=== PATIENT | female | born 1965 | race Caucasian/White ===

== ENCOUNTER 2016-07-29 10:28 | Emergency (ER) | payer MEDICARE, OTHER ==
[2016-07-29 10:42] VITALS: BP 140/67
--- OUTSIDE RECORDS SUMMARY | 2016-07-29 11:30 | XMS REPORT | Continuity of Care Document ---
:1965 Author Organization [facility] ([facility]) Address [address] [place] [address] Phone [phone] Care Team Providers Name Role Phone AkuaTamia vera Primary Care Provider [phone] Source Comments This disclosure is being made pursuant to the Care Everywhere program, applicable federal and state laws, and may not contain all informaitonavailable regarding this patient.[facility] ([facility]) Active Allergies and Adverse Reactions Allergen Noted Date Severity Reactions Comments [id number] Unknown severe fatigue Kinde Unknown Diabetes insipidus Pseudoephedrine Unknown severe fatigue Current Medications Prescription Sig. Disp. Refills Start Date End Date Status OLANZapine (ZYPREXA) Take 7.5 mg by mouth 10/28/2009 Active 10 mg tablet daily. Multivitamin,Tx-Iron-M Take 1 Tab by mouth 11/03/2009 Active inerals (MULTILEX-T&M) daily. Tab levocarnitine Take 330 mg by mouth 11/03/2009 Active (CARNITOR) 330 mg 3 times daily. tablet clonazePAM (KLONOPIN) Take 1 mg by mouth 2 11/03/2009 Active 0.5 mg tablet times daily LORazepam 1 mg tablet Take 1 mg by mouth Active every 8 hours as needed sodium fluoride 1 application by 51 g 11 11/02/2010 Active (PREVIDENT 5000 PLUS) Dental route at 1.1 % dental cream bedtime. [place] nightly with pea-sized amount. Spit excess but do not rinse. [id number] Indications: Prevention of Dental Caries tolterodine (DETROL Take 4 mg by mouth Active LA) 4 mg ER capsule daily. hydrOXYzine pamoate 25 Take 25 mg by mouth 3 Active mg capsule times daily. traZODone 150 mg Take 150 mg by mouth Active tablet at bedtime. acetaminophen Take 1 Tab by mouth 25 Tab 0 03/27/2012 Active (TYLENOL) 325 mg every 4 hours as tablet needed. Indications: PAIN polyethylene glycol Take 17 g by mouth 2 510 g 11 07/28/2014 Active 3350 (MIRALAX) 17 times daily. gram/dose powder Indications: CONSTIPATION lamoTRIgine 25 mg Take 75 mg by mouth Active tablet daily QUEtiapine (SEROquel) Take 200 mg by mouth Active 200 mg XR tablet daily fexofenadine 180 mg Take 180 mg by mouth Active tablet daily FLUoxetine 10 mg Take 20 mg by mouth Active capsule daily. guaiFENesin 600 mg XR Take 1,200 mg by Active tablet mouth 2 times daily as needed artificial tears Instill 1 Drop onto Active (GENTEAL) 0.3 % both eyes daily as ophthalmic solution needed docusate 100 mg Take 100 mg by mouth Active capsule daily levETIRAcetam 500 mg Take 500 mg by mouth Active tablet 2 times daily. fluticasone 50 Use 2 Sprays into Active mcg/Actuation nasal both nostrils daily. spray bisacodyl 5 mg EC Take 5 mg by mouth Active tablet daily. chlorhexidine 0.12 % Take 10 mL by mouth 2 Active oral rinse times daily. Swish and expectorate Nothing by mouth for 30 minutes after use. Active Problems Problem Noted Date Fascial defect 12/02/2014 Cellulitis 11/19/2014 Overview: Monitor, treat with IV cipro and flagyl. Hypophosphatemia 11/17/2014 Overview: Monitor, replete as appropriate Oliguria 11/17/2014 Overview: Monitor, IVF as appropriate Hypovolemia 11/17/2014 Overview: Monitor, IVF as appropriate Postoperative pain 11/16/2014 Overview: Monitor, treat with IV/PO pain meds as appropriate Anemia of chronic disease 11/16/2014 Overview: Monitor, transfuse prn Rectal prolapse 07/28/2014 Overview: S/p rectopexy 11/16/14 History of recurrent UTIs 03/07/2012 Constipation 03/07/2012 Overview: Monitor, miralax prn Epilepsy 03/07/2012 Overview: Monitor, resume home meds as appropriate Dietary surveillance and counseling 02/01/2006 Moderate intellectual disabilities 02/01/2006 Overview: Monitor, resume home anxiolytics as appropriate Other constipation 01/24/2006 Social History Tobacco Use Types Packs/Day Years Used Date Never Smoker Smokeless Tobacco: Never Used Tobacco Cessation:Counseling Given: Yes Comments: Alcohol Use Drinks/Week oz/Week Comments No Last Filed Vital Signs Vital Sign Reading Time Taken Blood Pressure 128/68 03/15/2016 2:00 PM CDT Pulse 79 03/15/2016 10:08 AM CDT Temperature 35.8 C (96.4 F) 03/15/2016 1:48 PM CDT Respiratory Rate 16 03/15/2016 1:43 PM CDT Height 1.6 m (5' 2.99") 02/16/2016 1:34 PM CDT Weight 47.4 kg (104 lb 8 oz) 03/15/2016 10:08 AM CDT Body Mass Index 18.52 03/15/2016 10:08 AM CDT Oxygen Saturation 96% 03/15/2016 2:15 PM CDT Plan of Care Health Maintenance Due Date Last Done Comments HCV Screening 1965 Hepatitis B Vaccine (1 of 3 - Primary Series) 1965 Tdap Vaccine 1974 Lipid Disorder Screening 1981 MMR Vaccine 1981 Td Vaccine 1981 Cervical Cancer Screening 1993 Mammogram 2003 Influenza Vaccine: Seasonal (#1) 12/27/2015 Colonoscopy 07/20/2024 07/20/2014 Results from Last 3 Months Not on file
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
== END 2016-07-29 11:41 | disposition home or self-care (01) ==
LOC: ER 10:28
DX: S63.502A Unspecified sprain of left wrist, initial encounter (principal); F41.8 Other specified anxiety disorders; F31.70 Bipolar disorder, currently in remission, most recent episode unspecified; Y04.2XXA Assault by strike against or bumped into by another person, initial encounter; Y92.129 Unspecified place in nursing home as the place of occurrence of the external cause

== ENCOUNTER 2017-04-28 13:03 | Inpatient (IN) | payer MEDICARE, MEDICAID ==
[2017-04-28] MEDS ORDERED: ACETAMINOPHEN 325 MG TABLET PO ONE (13:25)
[2017-04-28] MEDS ORDERED: NORMAL SALINE 1,000 ML IV ONE (13:25)
[2017-04-28] MEDS ORDERED: ONDANSETRON HCL/PF 2 MG/ML VIAL IV ONE (13:26)
[2017-04-28] MEDS ORDERED: ACETAMINOPHEN 325 MG TABLET ONE (13:39)
[2017-04-28] MEDS ORDERED: ONDANSETRON HCL/PF 2 MG/ML VIAL ONE (13:39)
[2017-04-28 13:50] LABS: Hematocrit 39.5 % (37.0-47.0); Hemoglobin 13.4 gm/dL (12.5-16.0); Mean Cell Volume 89.4 fl (78-100); Mean Corpuscular Hemoglobin 30.3 pg (27-31); Mean Corpuscular Hgb Conc 33.9 g/dl (32-36); Platelet Count 316 K/mm3 (150-450); Red Blood Count 4.42 M/mm3 (4.2-5.4); Red Cell Distribution Width 12.7 % (11.5-14.0); White Blood Count 12.6 K/mm3 (4.0-10.5)
[2017-04-28 13:51] LABS: Total Cells Counted 100
[2017-04-28 13:58] LABS: Band 11 % (0-2.0); Lymphocyte 4 % (20-51); Monocyte 7 % (0-9); Neutrophil 78 % (42-75); Neutrophil # 9.8 K/mm3 (1.3-6.0); Platelet Estimate Normal (NORMAL)
[2017-04-28 13:59] LABS: RBC Morphology Normal (NORMAL)
[2017-04-28 14:02] LABS: Anion Gap 12.1 mmol/L (6.8-13.8); BUN/Creatinine Ratio 21.2 (9.0-21.6); Bilirubin, Total 0.5 mg/dL (0.0-1.1); Ca. Corrected For Albumin 9.7 mg/dL (8.4-10.2); Calcium * 9.2 mg/dL (7.9-10.9); Carbon Dioxide 32.8 mmol/L (24-32.6); Magnesium 2.2 mg/dL (1.2-2.8); Potassium 3.9 mmol/L (3.4-4.6); Total Protein 7.8 gm/dL (6.2-8.2)
--- NOTE | 2017-04-28 14:10 | ERNOTE ---
Medical Problem HPI - General Chief Complaint: Fever Time Seen by Provider: 04/28/17 13:16 Source: patient, other - caregiver Exam Limitations: other - cognitive impairment - Immun/Allergies/Home Medications Immunizations: IMMUNIZATION HX Immunizations Up to Date Yes History of Influenza Vaccine More Information Required Hx Pneumococcal Vaccination More Information Required Allergies/Adverse Reactions: Allergies brompheniramine maleate [From Dimetapp (brompheniramine-PPA)] Allergy ( Intermediate, Verified 07/29/16 10:41) lithium [[place]] Allergy (Intermediate, Verified 07/29/16 10:41) phenylpropanolamine HCl [From Dimetapp (brompheniramine-PPA)] Allergy ( Intermediate, Verified 07/29/16 10:41) Home Medications: HOME MEDICATIONS Acetaminophen [Tylenol] 2 tab PO Q4HWA PRN 05/26/12 [Last Taken Unknown] Clonazepam [Klonopin] 1 mg PO BID 05/26/12 [Last Taken Unknown] Docusate Sodium [Colace] 100 mg PO DAILY 05/26/12 [Last Taken Unknown] Olanzapine [Zyprexa] 7.5 mg PO DAILY 05/26/12 [Last Taken Unknown] Polyethylene Glycol 3350 [Miralax] 17 gm PO DAILY 05/26/12 [Last Taken Unknown] QUEtiapine FUMARATE [Seroquel Xr] 200 mg PO DAILY 05/26/12 [Last Taken Unknown] Trazodone HCl 150 mg PO HS 05/26/12 [Last Taken Unknown] Multivit,Tx with Iron,Minerals [Bxgfbeid-P-Q with Minerals] 1 each PO DAILY 03/11 [Last Taken Unknown] Bisacodyl [Women's Laxative] 5 mg PO DAILY PRN 07/29/16 [Last Taken Unknown] Chlorhexidine Gluconate [Paroex] 1 tsp PO BID 07/29/16 [Last Taken Unknown] Cholecalciferol (Vitamin D3) [Vitamin D3] 2,000 unit PO DAILY 07/29/16 [Last Taken Unknown] FLUoxetine HCL [Prozac] 40 mg PO DAILY 07/29/16 [Last Taken Unknown] Fexofenadine HCl [Sejal Allergy] 180 mg PO DAILY 07/29/16 [Last Taken Unknown] Fluticasone Propionate [Flonase Allergy Relief] 1 spray NS DAILY 07/29/16 [Last Taken Unknown] LORazepam [Ativan] 1 mg PO TID PRN 07/29/16 [Last Taken Unknown] Levocarnitine [Carnitor] 330 mg PO TID 07/29/16 [Last Taken Unknown] guaiFENesin [Guaifenesin ER] 600 mg PO BID PRN 07/29/16 [Last Taken Unknown] lamoTRIgine [Lamictal] 100 mg PO DAILY 07/29/16 [Last Taken Unknown] levETIRAcetam [Keppra] 1,000 mg PO BID 07/29/16 [Last Taken Unknown] Hydroxyzine HCl 25 mg PO TID 04/28/17 [Last Taken Unknown] Memantine HCl [Namenda] 5 mg PO BID 04/28/17 [Last Taken Unknown] Solifenacin Succinate [Vesicare] 10 mg PO DAILY 04/28/17 [Last Taken Unknown] - History of Present History Narrative: Patient was apparently at her baseline yesterday started to run a fever last night that got up to 102+ today at her care facility. Timing: constant Severity: moderate Review of Systems - Review of Systems Constitutional: Present: See HPI EYE: Present: no symptoms reported ENT: Present: no symptoms reported Respiratory: Present: no symptoms reported Cardiology: Present: no symptoms reported Gastrointestinal/Abdominal: Present: no symptoms reported Genitourinary: Present: no symptoms reported Musculoskeletal: Present: no symptoms reported Skin: Present: no symptoms reported Neurological: Present: no symptoms reported Endocrine: Present: no symptoms reported Hematologic/Lymphatic: Present: no symptoms reported Psych: Present: no symptoms reported - Patient's Past Medical History Patient History - Medical: Anxiety, Bipolar, Depression, Seizures, Other Patient History - Cardiac/Respiratory: No pertinent hx Patient History - Cancer: No Hx of Cancer Patient History - Surgical Procedures: Hysterectomy, Other Patient History - Other: None - Social History Living Situations: home Abuse History: No History of abuse Psych History: Current tx/ever been on anti-depressants or anti-anxiety meds Smoking Status: Never smoker - Immunizations Immunizations Up to Date: Yes Hx Pneumococcal Vaccination: More Information Required to Determine History of Influenza Vaccine: More Information Required to Determine Physical Exam - Physical Exam General Appearance: Present: wd/wn, alert, mild distress Head Exam: Present: normal inspection, no evidence of injury Eye Exam: Normal inspection: bilateral, PERRL: bilateral Ears, Nose, Throat: Present: normal pharynx, dry mucous membranes Neck: Present: normal inspection, nontender Respiratory: Present: no accessory muscle use, chest nontender, respiratory distress, rales - right lobe Cardiovascular/Chest: Present: regular rate, rhythm, no murmur, normal peripheral pulses Gastrointestinal/Abdominal: Present: normal bowel sounds, nontender, nondistended, soft, no organomegaly Rectal Exam: Present: deferred Back Exam: Present: normal inspection, normal range of motion Extremity Exam: Present: normal inspection, non-tender, no edema, normal range of motion Neurological Exam: Present: alert, oriented, normal mood/affect Skin Exam: Present: normal color, warm/dry Lymphatic Exam: Present: no adenopathy ED Progress - Results and Orders Patient's Lab Results:: I have reviewed the patient's lab results. - Vital Signs Patient's Vital Signs:: I have reviewed the patient's vital signs. Vital Signs: Vital Signs 04/28/17 13:07 Temperature 38.9 C H Pulse Rate 99 Respiratory 18 Rate Blood Pressure 142/75 O2 Sat by Pulse 94 Oximetry - X-Ray X-Ray #1 X-Ray: chest Interpretation: Reviewed by me - Progress/Reassessment Chief Complaint: Fever Plan - Plan Plan: Patient will be admitted to a general medical bed for IV antibiotics. Departure Clinical Impression: Pneumonia Qualifiers: Pneumonia type: due to unspecified organism Laterality: right Lung location: middle lobe of lung Qualified Code(s): J18.1 - Lobar pneumonia, unspecified organism - Departure Disposition: [facility] Condition: Fair
[2017-04-28 14:55] LABS: Urine Appearance Clear; Urine Bilirubin Negative (NEGATIVE); Urine Blood Negative /ul (NEGATIVE); Urine Color Dark Yellow; Urine Ketone Negative (NEGATIVE); Urine Protein Negative (NEGATIVE); Urine Specific Gravity 1.025 SP.GR. (1.005-1.010)
[2017-04-28 14:56] LABS: Urine Bacteria None Seen; Urine Nitrite Negative (NEGATIVE); Urine RBC None Seen /hpf (0-5); Urine Urobilinogen Normal (NORMAL); Urine WBC 0-5 /hpf (0-5)
[2017-04-28] MEDS ORDERED: AZITHROMYCIN 500 MG in DEXTROSE 5 % IN WATER 250 ML IV ONE ×2 (16:27)
--- NOTE | 2017-04-28 20:18 | HP ---
Chief Complaint - Chief Complaint Date of Service: 04/28/17 Time of Service: 20:06 Chief Complaint: fever History of Present Illness: Pt is a 52 year old female with a PMH significant for, MR, bipolar disorder, and seizure disorder who comes from her long-term with complaints of a fever of 102*F, abdominal pain, N/V, and runny nose. Most information obtained is from medical record as pt is unable to provide history. Per staff at long-term they also report she has been incontinent of urine which unusual for her. In the ER workup revealed mild leukocytosis of 12.6 with left shift, bands 11. Chest xray shows consolidation in the RML/RUL, given history of vomiting, concerning for aspiration PN. ALT, AST, and alk phos were also elevated abdominal xray was completed, however the final read is not available to me at this time. Vital signs have remained stable and she is afebrile at this time. Influenza swabs negative. She will be admitted to in patient for further work up of elevated liver enzymes, serial labs, and treatment of her PN with IV antibiotics. - Patient's Past Medical History Patient History - Medical: Anxiety, Bipolar, Depression, Seizures, Other Patient History - Cardiac/Respiratory: No pertinent hx Patient History - Cancer: No Hx of Cancer Patient History - Surgical Procedures: Hysterectomy Patient History - Other: None - Family History Family History:: no untoward family reactions to anesthesia, no familial bleeding tendencies, no family history of clotting disorders, no family history of premature - Social History Living Situations: other Abuse History: No History of abuse Psych History: Hx of Anxiety, Hx of Depression, Hx of Bipolar Disorder, Hx of Psychiatric Tx, Current tx/ever been on anti-depressants or anti-anxiety meds Smoking Status: Never smoker Have you smoked in the past 12 months: No Do you dip or chew tobacco: No Alcohol Use: none Drug Use: none - Immunizations Immunizations Up to Date: Yes Hx Pneumococcal Vaccination: Yes History of Influenza Vaccine: Yes Review Of Systems (GEN) - Review of Systems Generalized/Overall Review: Present: No Symptoms Reported - Pt has mental diability and is unable to provide me with ROS Immunizations: IMMUNIZATION HX Immunizations Up to Date Yes History of Influenza Vaccine More Information Required Hx Pneumococcal Vaccination More Information Required Allergies/Adverse Reactions: Allergies Allergy/AdvReac Type Severity Reaction Status Date / Time brompheniramine maleate Allergy Intermediate Verified 04/28/17 17:34 [From Dimetapp (brompheniramine-PPA)] lithium [[place]] Allergy Intermediate Verified 04/28/17 17:34 phenylpropanolamine HCl Allergy Intermediate Verified 04/28/17 17:34 [From Dimetapp (brompheniramine-PPA)] Home Medications: HOME MEDICATIONS Acetaminophen [Tylenol] 2 tab PO Q4HWA PRN 05/26/12 [Last Taken Unknown] Clonazepam [Klonopin] 1 mg PO BID 05/26/12 [Last Taken Unknown] Docusate Sodium [Colace] 100 mg PO DAILY 05/26/12 [Last Taken Unknown] Olanzapine [Zyprexa] 7.5 mg PO DAILY 05/26/12 [Last Taken Unknown] Polyethylene Glycol 3350 [Miralax] 17 gm PO DAILY 05/26/12 [Last Taken Unknown] QUEtiapine FUMARATE [Seroquel Xr] 200 mg PO DAILY 05/26/12 [Last Taken Unknown] Trazodone HCl 150 mg PO HS 05/26/12 [Last Taken Unknown] Multivit,Tx with Iron,Minerals [Nlzyzpdi-Y-R with Minerals] 1 each PO DAILY 03/11 [Last Taken Unknown] Bisacodyl [Women's Laxative] 5 mg PO DAILY PRN 07/29/16 [Last Taken Unknown] Chlorhexidine Gluconate [Paroex] 1 tsp PO BID 07/29/16 [Last Taken Unknown] Cholecalciferol (Vitamin D3) [Vitamin D3] 2,000 unit PO DAILY 07/29/16 [Last Taken Unknown] FLUoxetine HCL [Prozac] 40 mg PO DAILY 07/29/16 [Last Taken Unknown] Fexofenadine HCl [Sejal Allergy] 180 mg PO DAILY 07/29/16 [Last Taken Unknown] Fluticasone Propionate [Flonase Allergy Relief] 1 spray NS DAILY 07/29/16 [Last Taken Unknown] LORazepam [Ativan] 1 mg PO TID PRN 07/29/16 [Last Taken Unknown] Levocarnitine [Carnitor] 330 mg PO TID 07/29/16 [Last Taken Unknown] guaiFENesin [Guaifenesin ER] 600 mg PO BID PRN 07/29/16 [Last Taken Unknown] lamoTRIgine [Lamictal] 100 mg PO DAILY 07/29/16 [Last Taken Unknown] levETIRAcetam [Keppra] 1,000 mg PO BID 07/29/16 [Last Taken Unknown] Hydroxyzine HCl 25 mg PO TID 04/28/17 [Last Taken Unknown] Memantine HCl [Namenda] 5 mg PO BID 04/28/17 [Last Taken Unknown] Solifenacin Succinate [Vesicare] 10 mg PO DAILY 04/28/17 [Last Taken Unknown] Exam - Exam Vital Signs: Vital Signs - Last Taken Temp 36.2 C L 04/28/17 16:41 Pulse 81 04/28/17 16:41 Resp 22 H 04/28/17 16:41 BP 119/66 04/28/17 16:41 Pulse Ox 96 2L 04/28/17 16:41 Constitutional: Present: Alert, Cooperative, No distress ENT Exam: Present: normal ENT inspection, hearing grossly normal Eye Exam: bilateral eye: normal inspection, PERRL Back Exam: Present: normal inspection, no CVA tenderness, no vertebral tenderness Respiratory: Present: chest non-tender, lungs clear, normal breath sounds, no respiratory distress, no accessory muscle use Cardiovascular/Chest: Present: normal peripheral pulses, regular rate, rhythm, no chest tenderness, no edema, no gallop, no JVD, no murmur Peripheral Pulses: dorsalis-pedis (R): 1+, dorsalis-pedis (L): 1+, radial (R): 1 +, radial (L): 1+ Abdomen: Present: Normal bowel sounds, soft, nondistended, no rebound tenderness , no hepatospenomegaly, no masses, tender - RUQ and epigastric area Extremity: Present: normal range of motion, non-tender, normal inspection, no pedal edema, no calf tenderness, normal capillary refill Skin Exam: Present: normal color, warm/dry, no cyanosis Lymphatic: Present: no adenopathy Neurologic: Present: alert Appearance: Present: impaired insight Eye contact: Present: cooperative, avoids eye contact, refused to answer Thoughts: Present: no apparent hallucination Diagnostic Studies: Laboratory Results Laboratory Tests 04/28/17 04/28/17 04/28/17 13:35 13:35 13:35 WBC 12.6 H Hgb 13.4 Hct 39.5 Neutrophils % (Manual) 78 H Band Neuts % (Manual) 11 H Neutrophils # (Manual) 9.8 H Sodium 138 Potassium 3.9 Chloride 97 Carbon Dioxide 32.8 H Anion Gap 12.1 BUN 14 Creatinine 0.66 Random Glucose 140 H Lactic Acid, Venous 1.6 Calcium 9.2 Magnesium 2.2 Total Bilirubin 0.5 AST 79 H ALT 127 H Alkaline Phosphatase 239 H Total Protein 7.8 Albumin 3.0 L Influenza Type A Ag Influenza Type B Ag Mycoplasma pneumon IgM Group A Strep Rapid 04/28/17 04/28/17 04/28/17 13:35 14:13 14:13 WBC Hgb Hct Neutrophils % (Manual) Band Neuts % (Manual) Neutrophils # (Manual) Sodium Potassium Chloride Carbon Dioxide Anion Gap BUN Creatinine Random Glucose Lactic Acid, Venous Calcium Magnesium Total Bilirubin AST ALT Alkaline Phosphatase Total Protein Albumin Influenza Type A Ag Negative Influenza Type B Ag Negative Mycoplasma pneumon IgM Non reactive Group A Strep Rapid Negative Assessment/Plan - Assessment/Plan (1) Abdominal pain Assessment: Unclear etiology at this point. Elevated LFTs and tenderness to RUQ could correlate with gallbladder etiology, no history of liver disease. Will obtain RUQ US and await final read on xray films completed earlier today. Pt will remain NPO in the meantime. Problem: Acute (2) Elevated liver enzymes Assessment: As above Problem: Acute (3) Pneumonia Assessment: Chest xray consistent with multilobular PN, given history of vomiting RML consolidation warrants concern for apspiration PN. Will change antibiotic coverage to [place]. Problem: Acute Qualifiers: Pneumonia type: aspiration pneumonia Laterality: right Lung location: middle lobe of lung (4) Mental retardation Problem: Chronic (5) Bipolar 1 disorder Assessment: Maintain current medication regimen Problem: Chronic (6) Seizure Assessment: No seizure activity reported. Will maintain current medication regimen. Problem: Chronic
[2017-04-28] MEDS ORDERED: LORazepam 1 MG TABLET PO PRN (20:24)
[2017-04-28] MEDS ORDERED: BISACODYL 10 MG SUPP.RECT RC ONE ×2 (20:27→21:48)
[2017-04-28] MEDS ORDERED: CHLORHEXIDINE GLUCONATE 480 ML BTL PO SCH (21:00)
[2017-04-28] MEDS ORDERED: BISACODYL 5 MG TABLET.DR PO PRN (21:29)
[2017-04-28] MEDS ORDERED: traZODone HCL 50 MG TABLET ONE (21:49)
[2017-04-28] MEDS: traZODone HCL 150 MG TABLET PO SCH (22:01)
[2017-04-28] MEDS: levETIRAcetam 500 MG TABLET PO SCH (22:02)
[2017-04-28] MEDS: hydrOXYzine HCL 25 MG TABLET PO SCH (22:02)
[2017-04-28] MEDS: MEMANTINE HCL 10 MG TABLET PO SCH (22:03)
[2017-04-28] MEDS: clonazePAM 1 MG TABLET PO SCH (22:07)
[2017-04-28] MEDS: AMPICILLIN SODIUM/SULBACTAM NA 1.5 GM in NORMAL SALINE 100 ML IV SCH (22:09)
[2017-04-29] MEDS: DEXTROSE 5%-0.5 NORMAL SALINE 1,000 ML IV PRN ×3 (00:14→19:10)
[2017-04-29] MEDS: AMPICILLIN SODIUM/SULBACTAM NA 1.5 GM in NORMAL SALINE 100 ML IV SCH ×4 (03:53→20:43)
[2017-04-29] MEDS ORDERED: DIATRIZOATE MEGLUMINE, SODIUM 30 ML BTL PO ONE (06:23)
[2017-04-29 06:36] LABS: Hematocrit 35.1 % (37.0-47.0); Hemoglobin 11.8 gm/dL (12.5-16.0); Mean Cell Volume 90.9 fl (78-100); Mean Corpuscular Hemoglobin 30.6 pg (27-31); Mean Corpuscular Hgb Conc 33.6 g/dl (32-36); Mean Platelet Volume 9.2 fl (6.0-9.5); Platelet Count 269 K/mm3 (150-450); Red Blood Count 3.86 M/mm3 (4.2-5.4); Red Cell Distribution Width 12.7 % (11.5-14.0); White Blood Count 11.1 K/mm3 (4.0-10.5)
[2017-04-29 06:37] LABS: Total Cells Counted 100
[2017-04-29 06:50] LABS: Albumin * 2.4 gm/dl (3.4-5.0); Anion Gap 6.8 mmol/L (6.8-13.8); BUN/Creatinine Ratio 18.8 (9.0-21.6); Bilirubin, Total 0.5 mg/dL (0.0-1.1); Ca. Corrected For Albumin 9.5 mg/dL (8.4-10.2); Calcium * 8.5 mg/dL (7.9-10.9); Carbon Dioxide 33.7 mmol/L (24-32.6); Potassium 3.5 mmol/L (3.4-4.6); Total Protein 6.7 gm/dL (6.2-8.2)
[2017-04-29 06:59] LABS: Band 10 % (0-2.0); Eosinophil 1 % (0-3); Lymphocyte 11 % (20-51); Monocyte 7 % (0-9); Neutrophil 71 % (42-75); Neutrophil # 7.9 K/mm3 (1.3-6.0); Platelet Estimate Normal (NORMAL); RBC Morphology Normal (NORMAL)
[2017-04-29] MEDS: CHLORHEXIDINE GLUCONATE 15 ML UDC MM SCH ×2 (08:58→20:47)
[2017-04-29] MEDS: hydrOXYzine HCL 25 MG TABLET PO SCH ×3 (08:59→20:47)
[2017-04-29] MEDS: FLUoxetine HCL 20 MG CAPSULE PO SCH (08:59)
[2017-04-29] MEDS: levETIRAcetam 500 MG TABLET PO SCH ×2 (08:59→20:45)
[2017-04-29] MEDS: MEMANTINE HCL 10 MG TABLET PO SCH ×2 (08:59→20:45)
[2017-04-29] MEDS: DOCUSATE SODIUM 100 MG CAPSULE PO SCH (09:00)
[2017-04-29] MEDS: lamoTRIgine 100 MG TABLET PO SCH (09:00)
[2017-04-29] MEDS ORDERED: CHLORHEXIDINE GLUCONATE 15 ML UDC MM SCH (09:00)
[2017-04-29] MEDS: QUEtiapine FUMARATE 100 MG TABLET PO SCH ×2 (09:01→20:46)
[2017-04-29] MEDS: TOLTERODINE TARTRATE 4 MG CAPSULE PO SCH (09:01)
[2017-04-29] MEDS: OLANZapine 5 MG TABLET PO SCH (09:01)
[2017-04-29] MEDS: MULTIVIT-MIN/FA/LYCOPEN/LUTEIN 1 TAB TABLET PO SCH (09:01)
[2017-04-29] MEDS: LORATADINE 10 MG TABLET PO SCH (09:01)
[2017-04-29] MEDS: CHOLECALCIFEROL 1,000 UNIT CAPSULE PO SCH (09:02)
[2017-04-29] MEDS: ENOXAPARIN SODIUM 40 MG/0.4 ML SYRG SC SCH (09:02)
[2017-04-29] MEDS: POLYETHYLENE GLYCOL 3350 119 GM BTL PO SCH (09:04)
[2017-04-29] MEDS: clonazePAM 1 MG TABLET PO SCH ×2 (09:34→20:55)
[2017-04-29] MEDS: LEVOCARNITINE 330 MG PO SCH ×3 (09:36→18:45)
[2017-04-29] MEDS: FLUTICASONE PROPIONATE 120 SPRAY INHALER NS SCH (09:38)
--- NOTE | 2017-04-29 20:20 | PN ---
Subjective - Date and Time Seen Date: 04/29/17 Time: 08:30 Subjective Narrative: Patient seen and examined at bedside. Patient resting comfortably in bed at the time of my exam. No acute issues overnight per staff. Objective Objective Narrative: ROS unable to obtain secondary to patient's baseline MR - Vitals Vitals: Last Vital Signs Temp 37.9 C H 04/29/17 18:46 Pulse 95 04/29/17 18:46 Resp 22 H 04/29/17 18:46 BP 94/55 04/29/17 18:46 Pulse Ox 96 04/29/17 18:46 - Abnormal Lab Findings Abnormal Lab Findings: Abnormal Lab Results 04/29/17 04/29/17 Range/Units 06:30 06:30 WBC 11.1 H (4.0-10.5) K/mm3 RBC 3.86 L (4.2-5.4) M/mm3 Hgb 11.8 L (12.5-16.0) gm/dL Hct 35.1 L (37.0-47.0) % Band Neuts % (Manual) 10 H (0-2.0) % Lymphocytes % (Manual) 11 L (20-51) % Neutrophils # (Manual) 7.9 H (1.3-6.0) K/mm3 Lymphocytes # (Manual) 1.2 L (1.5-3.5) k/mm3 Carbon Dioxide 33.7 H (24-32.6) mmol/L Est GFR (Non-Af Amer) 143 H D (60-130) mL/min Random Glucose 130 H (70-110) mg/dL AST 72 H (0-48) U/L ALT 119 H (19-67) U/L Alkaline Phosphatase 207 H (50-170) U/L Albumin 2.4 L (3.4-5.0) gm/dl - Exam Constitutional: Present: Alert, No distress ENT Exam: Present: dry mucous membranes Respiratory: Present: no respiratory distress, no accessory muscle use, other - Rhonchi noted on the right posteriorly Cardiovascular/Chest: Present: regular rate, rhythm Abdomen: Present: soft, nontender, nondistended Skin Exam: Present: warm/dry Neurologic: Present: alert Assessment/Plan - Problems/Diagnosis (1) Aspiration pneumonia Problem: Acute Qualifiers: Laterality: right Lung location: unspecified part of lung Narrative: Continue IV antibiotics. Continue aspiration precautions. Patient will likely need to remain in the hospital for at least 2-3 days while receiving IV antibiotics. Patient will need a follow-up CXR in approximately 4 weeks to monitor resolution. (2) Elevated liver enzymes Problem: Acute Narrative: Unclear etiology but most likely secondary to transient hypotension. Enzymes are slowly trending down. Continue to monitor for now. If no improvement or if enzymes remain elevated, consider further evaluation. (3) Bipolar 1 disorder Problem: Chronic (4) Mental retardation Problem: Chronic
[2017-04-29] MEDS: traZODone HCL 150 MG TABLET PO SCH (20:48)
[2017-04-30] MEDS: AMPICILLIN SODIUM/SULBACTAM NA 1.5 GM in NORMAL SALINE 100 ML IV SCH ×4 (03:09→21:41)
[2017-04-30] MEDS: DEXTROSE 5%-0.5 NORMAL SALINE 1,000 ML IV PRN ×3 (04:35→23:14)
[2017-04-30 05:51] LABS: Hemoglobin 11.3 gm/dL (12.5-16.0); Mean Cell Volume 90.9 fl (78-100); Mean Corpuscular Hemoglobin 30.2 pg (27-31); Mean Corpuscular Hgb Conc 33.2 g/dl (32-36); Platelet Count 297 K/mm3 (150-450); Red Blood Count 3.74 M/mm3 (4.2-5.4); Red Cell Distribution Width 12.7 % (11.5-14.0); White Blood Count 7.7 K/mm3 (4.0-10.5)
[2017-04-30 06:10] LABS: Albumin * 2.1 gm/dl (3.4-5.0); Anion Gap 6.7 mmol/L (6.8-13.8); BUN/Creatinine Ratio 8.6 (9.0-21.6); Bilirubin Direct 0.1 mg/dL (0.0-0.3); Bilirubin, Total 0.3 mg/dL (0.0-1.1); Bilirubin,Indirect 0.2 mg/dL (0.1-0.7); Calcium * 8.6 mg/dL (7.9-10.9); Carbon Dioxide 34.3 mmol/L (24-32.6); Estimated Creat Clear 105.3; Total Protein 6.4 gm/dL (6.2-8.2)
[2017-04-30] MEDS: POTASSIUM CHLORIDE 20 MEQ TABLET.SA PO SCH ×3 (07:13→21:35)
[2017-04-30] MEDS: hydrOXYzine HCL 25 MG TABLET PO SCH ×3 (08:01→16:43)
[2017-04-30] MEDS: MULTIVIT-MIN/FA/LYCOPEN/LUTEIN 1 TAB TABLET PO SCH (08:01)
[2017-04-30] MEDS: LORATADINE 10 MG TABLET PO SCH (08:01)
[2017-04-30] MEDS: DOCUSATE SODIUM 100 MG CAPSULE PO SCH (08:02)
[2017-04-30] MEDS: levETIRAcetam 500 MG TABLET PO SCH ×2 (08:02→21:36)
[2017-04-30] MEDS: TOLTERODINE TARTRATE 4 MG CAPSULE PO SCH (08:02)
[2017-04-30] MEDS: ENOXAPARIN SODIUM 40 MG/0.4 ML SYRG SC SCH (08:03)
[2017-04-30] MEDS: POLYETHYLENE GLYCOL 3350 119 GM BTL PO SCH (08:03)
[2017-04-30] MEDS: lamoTRIgine 100 MG TABLET PO SCH (08:03)
[2017-04-30] MEDS: FLUoxetine HCL 20 MG CAPSULE PO SCH (08:04)
[2017-04-30] MEDS: MEMANTINE HCL 10 MG TABLET PO SCH ×2 (08:04→21:37)
[2017-04-30] MEDS: QUEtiapine FUMARATE 100 MG TABLET PO SCH ×2 (08:04→21:38)
[2017-04-30] MEDS: CHLORHEXIDINE GLUCONATE 15 ML UDC MM SCH ×2 (08:04→21:37)
[2017-04-30] MEDS: CHOLECALCIFEROL 1,000 UNIT CAPSULE PO SCH (08:04)
[2017-04-30] MEDS: OLANZapine 5 MG TABLET PO SCH (08:05)
[2017-04-30] MEDS: clonazePAM 1 MG TABLET PO SCH ×2 (08:13→21:40)
[2017-04-30] MEDS: FLUTICASONE PROPIONATE 120 SPRAY INHALER NS SCH (08:14)
[2017-04-30] MEDS: LEVOCARNITINE 330 MG PO SCH ×3 (08:25→16:43)
--- NOTE | 2017-04-30 08:29 | PN ---
Subjective - Date and Time Seen Date: 04/30/17 Time: 08:26 Subjective Narrative: Patient says she is doing fine. Denies abdominal pain/SOB. Objective - Review of Systems Generalized/Overall Review: Denies: Chills, Fever Respiratory: Reports: Cough, Shortness of Breath. Denies: Orthopnea Cardiac: Denies: Chest Pain, Edema, Palpitations Abdominal: Denies: Nausea, Vomiting, Abdominal Pain Genitourinary Symptoms: Denies: Urgency, Frequency Musculoskeletal Complaints: Denies: Joint Pain - Vitals Vitals: Last Vital Signs Temp 37 C 04/30/17 06:44 Pulse 86 04/30/17 06:44 Resp 20 04/30/17 06:44 BP 125/63 04/30/17 06:44 Pulse Ox 92 04/30/17 06:44 - Abnormal Lab Findings Abnormal Lab Findings: Abnormal Lab Results 04/30/17 04/30/17 Range/Units 05:30 05:30 RBC 3.74 L (4.2-5.4) M/mm3 Hgb 11.3 L (12.5-16.0) gm/dL Hct 34.0 L (37.0-47.0) % Potassium 3.0 L (3.4-4.6) mmol/L Carbon Dioxide 34.3 H (24-32.6) mmol/L Anion Gap 6.7 L (6.8-13.8) mmol/L Creatinine 0.35 L (0.4-1.4) mg/dL Est GFR (Non-Af Amer) 206 H D (60-130) mL/min BUN/Creatinine Ratio 8.6 L (9.0-21.6) Random Glucose 130 H (70-110) mg/dL AST 61 H (0-48) U/L ALT 107 H (19-67) U/L Alkaline Phosphatase 211 H (50-170) U/L Albumin 2.1 L (3.4-5.0) gm/dl - Exam Constitutional: Present: Alert - AAO x 2, Cooperative ENT Exam: Present: hearing grossly normal Neck: Present: supple Respiratory: Present: decreased breath sounds, No rales, No wheezing Cardiovascular/Chest: Present: regular rate, rhythm, no JVD, no murmur Abdomen: Present: Normal bowel sounds, soft, nontender, nondistended Extremity: Present: no pedal edema, no calf tenderness Assessment/Plan - Problems/Diagnosis (1) Pneumonia Problem: Acute Qualifiers: Pneumonia type: aspiration pneumonia Laterality: right Lung location: middle lobe of lung Narrative: will add Azithromycin. (2) Elevated liver enzymes Problem: Acute Narrative: US shows no acute hepatobiliary findings. will order Hepatitis panel. (3) Mental retardation Problem: Chronic (4) Seizure Problem: Chronic (5) Gaseous abdominal distention Problem: Acute Narrative: ileus on AXR.
[2017-04-30] MEDS ORDERED: AZITHROMYCIN 250 MG TABLET PO ONE (08:34)
[2017-04-30] MEDS: traZODone HCL 150 MG TABLET PO SCH (21:36)
[2017-05-01] MEDS: AMPICILLIN SODIUM/SULBACTAM NA 1.5 GM in NORMAL SALINE 100 ML IV SCH ×4 (02:59→20:30)
[2017-05-01 06:11] LABS: Hematocrit 36.2 % (37.0-47.0); Mean Cell Volume 90.3 fl (78-100); Mean Corpuscular Hemoglobin 29.9 pg (27-31); Mean Corpuscular Hgb Conc 33.1 g/dl (32-36); Mean Platelet Volume 9.1 fl (6.0-9.5); Platelet Count 342 K/mm3 (150-450); Red Blood Count 4.01 M/mm3 (4.2-5.4); Red Cell Distribution Width 12.4 % (11.5-14.0); White Blood Count 7.4 K/mm3 (4.0-10.5)
[2017-05-01 06:26] LABS: Albumin * 2.3 gm/dl (3.4-5.0); Anion Gap 10.1 mmol/L (6.8-13.8); Bilirubin, Total 0.4 mg/dL (0.0-1.1); Ca. Corrected For Albumin 10.2 mg/dL (8.4-10.2); Calcium * 9.2 mg/dL (7.9-10.9); Carbon Dioxide 29.2 mmol/L (24-32.6); Potassium 4.3 mmol/L (3.4-4.6); Total Protein 7.1 gm/dL (6.2-8.2)
--- NOTE | 2017-05-01 06:27 | DS ---
(1) Abdominal pain Problem: Resolved (2) Elevated liver enzymes Problem: Acute (3) Pneumonia Problem: Acute Qualifiers: Pneumonia type: aspiration pneumonia Laterality: right Lung location: middle lobe of lung (4) Mental retardation Problem: Chronic (5) Bipolar 1 disorder Problem: Chronic (6) Seizure Problem: Chronic Description of Stay: Pt is a 52 year old female with a PMH significant for, MR, bipolar disorder, and seizure disorder who comes from her half-way with complaints of a fever of 102*F, abdominal pain, N/V, and runny nose. Most information obtained is from medical record as pt is unable to provide history. Per staff at half-way they also report she has been incontinent of urine which unusual for her. In the ER workup revealed mild leukocytosis of 12.6 with left shift, bands 11. Chest xray shows consolidation in the RML/RUL, given history of vomiting, concerning for aspiration PN. ALT, AST, and alk phos were also elevated abdominal xray was completed, however the final read is not available to me at this time. Vital signs have remained stable and she is afebrile at this time. Influenza swabs negative. She was admitted to in patient for further work up of elevated liver enzymes, serial labs, and treatment of her PN with IV antibiotics. During her hospital course, enzymes have slowed down trended. She has not complained of any abdominal pain, is having bowel movements, and is tolerating a diet. Repeat chest xray and abdominal imaging this morning revealed Procedures Performed: none Discharge Disposition: Other HealthCare facility Disposition: Other health care facility Condition: Fair Discharge Activity: Activity as tolerated Referrals: Tamia Lindo MD [Primary Care Provider] - One Week Problem Oriented Discharge Instructions to Patient/Family: Aspiration Pneumonia Print Language (Icelandic or Faroese Available): Icelandic Additional Patient Instructions (free text): Call Allyssa if patient discharged during office hours,[phone]. If after office hours call the medical numerical control operator phone at [phone]. Any medications need to be called into/sent to [facility] in [place]. Complete Home Medications List: Complete Home Medication List: Acetaminophen [Tylenol] 2 tab PO Q4HWA PRN 05/26/12 Clonazepam [Klonopin] 1 mg PO BID 05/26/12 Docusate Sodium [Colace] 100 mg PO DAILY 05/26/12 Olanzapine [Zyprexa] 7.5 mg PO DAILY 05/26/12 Polyethylene Glycol 3350 [Miralax] 17 gm PO DAILY 05/26/12 QUEtiapine FUMARATE [Seroquel Xr] 200 mg PO DAILY 05/26/12 Trazodone HCl 150 mg PO HS 05/26/12 Multivit,Tx with Iron,Minerals [Ktjmfphe-P-N with Minerals] 1 each PO DAILY 03/11 Bisacodyl [Women's Laxative] 5 mg PO DAILY PRN 07/29/16 Chlorhexidine Gluconate [Paroex] 1 tsp PO BID 07/29/16 Cholecalciferol (Vitamin D3) [Vitamin D3] 2,000 unit PO DAILY 07/29/16 FLUoxetine HCL [Prozac] 40 mg PO DAILY 07/29/16 Fexofenadine HCl [Sejal Allergy] 180 mg PO DAILY 07/29/16 Fluticasone Propionate [Flonase Allergy Relief] 1 spray NS DAILY 07/29/16 LORazepam [Ativan] 1 mg PO TID PRN 07/29/16 Levocarnitine [Carnitor] 330 mg PO TID 07/29/16 guaiFENesin [Guaifenesin ER] 600 mg PO BID PRN 07/29/16 lamoTRIgine [Lamictal] 100 mg PO DAILY 07/29/16 levETIRAcetam [Keppra] 1,000 mg PO BID 07/29/16 Hydroxyzine HCl 25 mg PO TID 04/28/17 Memantine HCl [Namenda] 5 mg PO BID 04/28/17 Solifenacin Succinate [Vesicare] 10 mg PO DAILY 04/28/17
[2017-05-01] MEDS: DEXTROSE 5%-0.5 NORMAL SALINE 1,000 ML IV PRN ×2 (08:27→20:13)
[2017-05-01] MEDS: AZITHROMYCIN 250 MG TABLET PO SCH (09:28)
[2017-05-01] MEDS: hydrOXYzine HCL 25 MG TABLET PO SCH ×3 (09:29→16:35)
[2017-05-01] MEDS: QUEtiapine FUMARATE 100 MG TABLET PO SCH ×2 (09:29→20:17)
[2017-05-01] MEDS: OLANZapine 5 MG TABLET PO SCH (09:30)
[2017-05-01] MEDS: MEMANTINE HCL 10 MG TABLET PO SCH ×2 (09:30→20:17)
[2017-05-01] MEDS: FLUoxetine HCL 20 MG CAPSULE PO SCH (09:30)
[2017-05-01] MEDS: TOLTERODINE TARTRATE 4 MG CAPSULE PO SCH (09:31)
[2017-05-01] MEDS: lamoTRIgine 100 MG TABLET PO SCH (09:31)
[2017-05-01] MEDS: levETIRAcetam 500 MG TABLET PO SCH ×2 (09:31→20:17)
[2017-05-01] MEDS: LORATADINE 10 MG TABLET PO SCH (09:31)
[2017-05-01] MEDS: DOCUSATE SODIUM 100 MG CAPSULE PO SCH (09:33)
[2017-05-01] MEDS: clonazePAM 1 MG TABLET PO SCH ×2 (09:33→20:21)
[2017-05-01] MEDS: CHOLECALCIFEROL 1,000 UNIT CAPSULE PO SCH (09:34)
[2017-05-01] MEDS: MULTIVIT-MIN/FA/LYCOPEN/LUTEIN 1 TAB TABLET PO SCH (09:34)
[2017-05-01] MEDS: FLUTICASONE PROPIONATE 120 SPRAY INHALER NS SCH (09:35)
[2017-05-01] MEDS: POLYETHYLENE GLYCOL 3350 119 GM BTL PO SCH (09:35)
[2017-05-01] MEDS: LEVOCARNITINE 330 MG PO SCH ×3 (09:36→16:30)
[2017-05-01] MEDS: ENOXAPARIN SODIUM 40 MG/0.4 ML SYRG SC SCH (09:36)
[2017-05-01] MEDS: CHLORHEXIDINE GLUCONATE 15 ML UDC MM SCH ×2 (09:36→20:18)
[2017-05-01] MEDS: ACETAMINOPHEN 325 MG TABLET PO PRN (12:03)
--- NOTE | 2017-05-01 12:22 | PN ---
Progess Note - Interim Narrative: 05/01/17 12:20 The patient had a Tmax of 38.2. Her CXr shows interval improvement and AXR shows stool retention. Will cancel her discharge and continue with her IV antibiotics and change to oral 24-48 hours after her fever subsides. Will use her discharge summary as her progress notes.
[2017-05-01] MEDS ORDERED: MAGNESIUM HYDROXIDE 30 ML UDC PO ONE ×2 (12:45→15:42)
[2017-05-01] MEDS: traZODone HCL 150 MG TABLET PO SCH (20:18)
[2017-05-02] MEDS: AMPICILLIN SODIUM/SULBACTAM NA 1.5 GM in NORMAL SALINE 100 ML IV SCH ×4 (04:12→20:29)
[2017-05-02 06:22] LABS: Albumin * 2.4 gm/dl (3.4-5.0); Bilirubin Direct 0.2 mg/dL (0.0-0.3); Bilirubin, Total 0.4 mg/dL (0.0-1.1); Bilirubin,Indirect 0.2 mg/dL (0.1-0.7); Total Protein 7.4 gm/dL (6.2-8.2)
[2017-05-02] MEDS: DEXTROSE 5%-0.5 NORMAL SALINE 1,000 ML IV PRN ×2 (07:48→19:06)
--- NOTE | 2017-05-02 08:53 | PN ---
Progess Note - Interim Narrative: 05/02/17 08:52 Tmax last night was 39.2 despite improving Xray findings. LFT's elevated. US showed no GB/Biliary tree pathology but no mention of liver. For CTS of abdomen and pelvis today- liver abscess?.
[2017-05-02] MEDS ORDERED: DIATRIZOATE MEGLUMINE, SODIUM 30 ML BTL PO ONE (09:23)
[2017-05-02] MEDS: POLYETHYLENE GLYCOL 3350 119 GM BTL PO SCH (09:27)
[2017-05-02] MEDS: FLUTICASONE PROPIONATE 120 SPRAY INHALER NS SCH (09:27)
[2017-05-02] MEDS: TOLTERODINE TARTRATE 4 MG CAPSULE PO SCH (09:28)
[2017-05-02] MEDS: levETIRAcetam 500 MG TABLET PO SCH ×2 (09:28→20:22)
[2017-05-02] MEDS: DOCUSATE SODIUM 100 MG CAPSULE PO SCH (09:28)
[2017-05-02] MEDS: MEMANTINE HCL 10 MG TABLET PO SCH ×2 (09:28→20:22)
[2017-05-02] MEDS: FLUoxetine HCL 20 MG CAPSULE PO SCH (09:29)
[2017-05-02] MEDS: LORATADINE 10 MG TABLET PO SCH (09:29)
[2017-05-02] MEDS: MULTIVIT-MIN/FA/LYCOPEN/LUTEIN 1 TAB TABLET PO SCH (09:29)
[2017-05-02] MEDS: CHLORHEXIDINE GLUCONATE 15 ML UDC MM SCH ×2 (09:29→20:21)
[2017-05-02] MEDS: QUEtiapine FUMARATE 100 MG TABLET PO SCH ×2 (09:29→20:28)
[2017-05-02] MEDS: OLANZapine 5 MG TABLET PO SCH (09:29)
[2017-05-02] MEDS: ENOXAPARIN SODIUM 40 MG/0.4 ML SYRG SC SCH (09:29)
[2017-05-02] MEDS: lamoTRIgine 100 MG TABLET PO SCH (09:30)
[2017-05-02] MEDS: LEVOCARNITINE 330 MG PO SCH ×3 (09:30→16:45)
[2017-05-02] MEDS: AZITHROMYCIN 250 MG TABLET PO SCH (09:30)
[2017-05-02] MEDS: CHOLECALCIFEROL 1,000 UNIT CAPSULE PO SCH (09:30)
[2017-05-02] MEDS: clonazePAM 1 MG TABLET PO SCH ×2 (09:43→20:24)
[2017-05-02] MEDS: hydrOXYzine HCL 25 MG TABLET PO SCH ×3 (09:43→17:06)
[2017-05-02] MEDS: ACETAMINOPHEN 325 MG TABLET PO PRN (12:27)
[2017-05-02 16:03] LABS: Hepatitis C Antibody REACTIVE (NON-REACTIVE); Hepatitis Panel Confirmation DNR
--- NOTE | 2017-05-02 16:20 | PN ---
Subjective - Date and Time Seen Date: 05/02/17 Time: 16:10 Objective - Review of Systems Generalized/Overall Review: Reports: Fever. Denies: Chills Respiratory: Reports: Cough. Denies: Shortness of Breath Cardiac: Denies: Chest Pain, Palpitations Abdominal: Denies: Nausea, Vomiting, Abdominal Pain Genitourinary Symptoms: Denies: Urgency, Frequency Musculoskeletal Complaints: Denies: Joint Pain - Vitals Vitals: Last Vital Signs Temp 37.1 C 05/02/17 15:11 Pulse 95 05/02/17 15:11 Resp 18 05/02/17 15:11 BP 101/54 05/02/17 15:11 Pulse Ox 91 05/02/17 15:11 - Abnormal Lab Findings Abnormal Lab Findings: Abnormal Lab Results 05/02/17 Range/Units 05:59 AST 137 H (0-48) U/L ALT 209 H (19-67) U/L Alkaline Phosphatase 377 H (50-170) U/L Albumin 2.4 L (3.4-5.0) gm/dl - Exam Constitutional: Present: Alert - AAO x 2, Cooperative ENT Exam: Present: hearing grossly normal Neck: Present: supple Respiratory: Present: decreased breath sounds, No rales, No wheezing Cardiovascular/Chest: Present: regular rate, rhythm, no JVD, no murmur Abdomen: Present: Normal bowel sounds, soft, nontender, nondistended Extremity: Present: no pedal edema, no calf tenderness Assessment/Plan - Problems/Diagnosis (1) Fever Problem: Acute Narrative: WBC down to normal for the last 2 days. CXR /abdominal XR shows improvement except for stool retention. CTS shows no acute intra-abdominal pathology but recommends Abdominal MRI/MRCP. Drug fever ? persisitent Elevated LFT. ADDENDUM: Tmax at 12:19 is 39.2 again. (2) Pneumonia Problem: Acute Qualifiers: Pneumonia type: aspiration pneumonia Laterality: right Lung location: middle lobe of lung (3) Elevated liver enzymes Problem: Acute Narrative: continues to be up. For CTS today. ADDENDUM: CTS showed stool retention . recommend MRI with MRCP if abdomen. (4) Mental retardation Problem: Chronic (5) Seizure Problem: Chronic (6) Gaseous abdominal distention Problem: Acute
[2017-05-02] MEDS: traZODone HCL 150 MG TABLET PO SCH (20:22)
[2017-05-03] MEDS: AMPICILLIN SODIUM/SULBACTAM NA 1.5 GM in NORMAL SALINE 100 ML IV SCH ×4 (02:35→20:55)
[2017-05-03] MEDS: DEXTROSE 5%-0.5 NORMAL SALINE 1,000 ML IV PRN ×3 (02:39→22:57)
[2017-05-03 08:58] LABS: Hepatitis A IgM Antibody NON-REACTIVE (NON-REACTIVE); Hepatitis B Surface Antigen NON-REACTIVE (NON-REACTIVE)
[2017-05-03] MEDS: MULTIVIT-MIN/FA/LYCOPEN/LUTEIN 1 TAB TABLET PO SCH (09:26)
[2017-05-03] MEDS: hydrOXYzine HCL 25 MG TABLET PO SCH ×3 (09:26→16:30)
[2017-05-03] MEDS: FLUTICASONE PROPIONATE 120 SPRAY INHALER NS SCH (09:27)
[2017-05-03] MEDS: LORATADINE 10 MG TABLET PO SCH (09:27)
[2017-05-03] MEDS: levETIRAcetam 500 MG TABLET PO SCH ×2 (09:27→20:50)
[2017-05-03] MEDS: TOLTERODINE TARTRATE 4 MG CAPSULE PO SCH (09:27)
[2017-05-03] MEDS: DOCUSATE SODIUM 100 MG CAPSULE PO SCH (09:27)
[2017-05-03] MEDS: clonazePAM 1 MG TABLET PO SCH ×2 (09:27→20:54)
[2017-05-03] MEDS: lamoTRIgine 100 MG TABLET PO SCH (09:28)
[2017-05-03] MEDS: LEVOCARNITINE 330 MG PO SCH ×3 (09:28→16:29)
[2017-05-03] MEDS: ENOXAPARIN SODIUM 40 MG/0.4 ML SYRG SC SCH (09:28)
[2017-05-03] MEDS: POLYETHYLENE GLYCOL 3350 119 GM BTL PO SCH (09:28)
[2017-05-03] MEDS: MEMANTINE HCL 10 MG TABLET PO SCH ×2 (09:29→20:50)
[2017-05-03] MEDS: CHLORHEXIDINE GLUCONATE 15 ML UDC MM SCH ×2 (09:29→20:49)
[2017-05-03] MEDS: QUEtiapine FUMARATE 100 MG TABLET PO SCH ×2 (09:30→20:51)
[2017-05-03] MEDS: OLANZapine 5 MG TABLET PO SCH (09:30)
[2017-05-03] MEDS: CHOLECALCIFEROL 1,000 UNIT CAPSULE PO SCH (09:30)
[2017-05-03] MEDS: AZITHROMYCIN 250 MG TABLET PO SCH (09:30)
[2017-05-03] MEDS: FLUoxetine HCL 20 MG CAPSULE PO SCH (09:30)
--- NOTE | 2017-05-03 12:03 | PN ---
Shelbie Note - Interim Narrative: 05/03/17 12:01 Could not do the MRI/MRCP as patient cannnot follow instructions. Will cancel. Will give her enema today and possible discharge tomorrow if she does not develop fever again.
--- NOTE | 2017-05-03 12:39 | PN ---
Subjective - Date and Time Seen Date: 05/03/17 Time: 12:35 Subjective Narrative: Patient NAD. Afebrile today. Objective - Review of Systems Misc: All systems neg except as marked - ROS is unreliable- everything is no pain - Vitals Vitals: Last Vital Signs Temp 37.2 C 05/03/17 11:26 Pulse 82 05/03/17 11:26 Resp 20 05/03/17 11:26 BP 126/64 05/03/17 11:26 Pulse Ox 96 05/03/17 11:26 - Abnormal Lab Findings Abnormal Lab Findings: Abnormal Lab Results 04/30/17 Range/Units 05:30 Hepatitis C Antibody Reactive H Hep C Ab Signal/Cutoff 1.04 H - Exam Constitutional: Present: Alert - AAO X 2, Cooperative ENT Exam: Present: hearing grossly normal Respiratory: Present: decreased breath sounds, No rales, No wheezing Cardiovascular/Chest: Present: normal peripheral pulses Abdomen: Present: Normal bowel sounds, soft, nontender, nondistended, no rebound tenderness Extremity: Present: no pedal edema, no calf tenderness Assessment/Plan - Problems/Diagnosis (1) Fever Problem: Acute Narrative: afebrile . ir remains w/o fever for another 24 hours will discharge patient. (2) Pneumonia Problem: Acute Qualifiers: Pneumonia type: aspiration pneumonia Laterality: right Lung location: middle lobe of lung Narrative: interval improvement on CXR. WBC back to normal (3) Elevated liver enzymes Problem: Acute Narrative: US /CTS no specific findings. Recommending MRI with MRCP but patient cannot follow innstructions in MRI. (4) Mental retardation Problem: Chronic (5) Seizure Problem: Chronic (6) Gaseous abdominal distention Problem: Acute Narrative: stool retention. will give enemas (7) Fecal retention Problem: Acute Narrative: on CTS . will give enema.
[2017-05-03] MEDS: traZODone HCL 150 MG TABLET PO SCH (20:51)
[2017-05-03] MEDS: ACETAMINOPHEN 325 MG TABLET PO PRN (21:23)
[2017-05-04] MEDS: AMPICILLIN SODIUM/SULBACTAM NA 1.5 GM in NORMAL SALINE 100 ML IV SCH ×2 (03:32→09:51)
[2017-05-04] MEDS: DEXTROSE 5%-0.5 NORMAL SALINE 1,000 ML IV PRN (07:35)
--- NOTE | 2017-05-04 09:40 | DS ---
(1) Fever Diagnosis(s): likely due to Acute Hep C and /or Pneumonia. Problem: Acute (2) Pneumonia Diagnosis(s): day 5 of IV antibiotics. Problem: Acute Qualifiers: Pneumonia type: aspiration pneumonia Laterality: right Lung location: middle lobe of lung (3) Elevated liver enzymes Diagnosis(s): deu to Hep C acute vs chronic Problem: Acute (4) Mental retardation Problem: Chronic (5) Seizure Problem: Chronic (6) Gaseous abdominal distention Problem: Acute (7) Fecal retention Problem: Acute Description of Stay: Nisa Lemus, is a 52 year old female, with a PMH significant for MR, bipolar disorder, and seizure disorder who was admitted on 04/30/2017, from her correction with complaints of a fever of 102*F, abdominal pain, N/V, and runny nose. Most information obtained is from medical record as pt is unable to provide history. Per staff at correction they also report she has been incontinent of urine which unusual for her. In the ER workup revealed mild leukocytosis of 12.6 with left shift, bands 11. Chest xray shows consolidation in the RML/RUL, given history of vomiting, concerning for aspiration PN. ALT, AST, and alk phos were also elevated abdominal xray Vital signs have remained stable and she is afebrile at this time. Influenza swabs negative. She was admitted to in patient for further work up of elevated liver enzymes, serial labs, and treatment of her PN with IV antibiotics. She was started on Unasyn for aspiration pneumonia. Azithromycin was added. Her US showed no acute Hepatobiliary findings. Hepatitis panel was sent out. Her CTS showed no acute intarabdominal findings as she continued to have fever despite WBC going down to normal and interbval improvement of her CXR for pneumonia. Her Hepatitis panel came back positive for Hepatitis C antibody. She is stable discharge and will get a Hep C RNA level before her discharge and will make an appointment for her with Hepatology dept in [facility] if she is candidate for treatment with DAA in the acute phase. Procedures Performed: none Discharge Disposition: Other HealthCare facility Disposition: Other health care facility Condition: Fair Discharge Activity: Activity as tolerated Discharge Diet: Low fat/chol Referrals: Tamia Lindo MD [Primary Care Provider] - One Week Problem Oriented Discharge Instructions to Patient/Family: Aspiration Pneumonia Print Language (Spanish or Canadian Available): Spanish Additional Patient Instructions (free text): Call Allyssa if patient discharged during office hours,[phone] [phone]. If after office hours call the refrigeration service inspector phone at [phone]. Any medications need to be called into/sent to [facility] in [place]. Resume previous diet. Follow up with PCP in 1 week.. Prescriptions (Any new or edited meds): Amox Tr/Potassium Clavulanate [Augmentin 875-125 Tablet] 875 mg PO Q12H #10 tab Complete Home Medications List: Complete Home Medication List: Acetaminophen [Tylenol] 2 tab PO Q4HWA PRN 05/26/12 Clonazepam [Klonopin] 1 mg PO BID 05/26/12 Docusate Sodium [Colace] 100 mg PO DAILY 05/26/12 Olanzapine [Zyprexa] 7.5 mg PO DAILY 05/26/12 Polyethylene Glycol 3350 [Miralax] 17 gm PO DAILY 05/26/12 QUEtiapine FUMARATE [Seroquel Xr] 200 mg PO DAILY 05/26/12 Trazodone HCl 150 mg PO HS 05/26/12 Multivit,Tx with Iron,Minerals [Dsvkutzj-M-V with Minerals] 1 each PO DAILY 03/11 Bisacodyl [Women's Laxative] 5 mg PO DAILY PRN 07/29/16 Chlorhexidine Gluconate [Paroex] 1 tsp PO BID 07/29/16 Cholecalciferol (Vitamin D3) [Vitamin D3] 2,000 unit PO DAILY 07/29/16 FLUoxetine HCL [Prozac] 40 mg PO DAILY 07/29/16 Fexofenadine HCl [Sejal Allergy] 180 mg PO DAILY 07/29/16 Fluticasone Propionate [Flonase Allergy Relief] 1 spray NS DAILY 07/29/16 LORazepam [Ativan] 1 mg PO TID PRN 07/29/16 Levocarnitine [Carnitor] 330 mg PO TID 07/29/16 guaiFENesin [Guaifenesin ER] 600 mg PO BID PRN 07/29/16 lamoTRIgine [Lamictal] 100 mg PO DAILY 07/29/16 levETIRAcetam [Keppra] 1,000 mg PO BID 07/29/16 Hydroxyzine HCl 25 mg PO TID 04/28/17 Memantine HCl [Namenda] 5 mg PO BID 04/28/17 Solifenacin Succinate [Vesicare] 10 mg PO DAILY 04/28/17 Amox Tr/Potassium Clavulanate [Augmentin 875-125 Tablet] 875 mg PO Q12H #10 tab 05/04/17 Amb Orders for Discharge: Liver Panel Time Frame: 05/11/17, Location: Determined By Patient
[2017-05-04] MEDS: LEVOCARNITINE 330 MG PO SCH ×2 (09:54→14:31)
[2017-05-04] MEDS: hydrOXYzine HCL 25 MG TABLET PO SCH (14:29)
[2017-05-04] MEDS: TOLTERODINE TARTRATE 4 MG CAPSULE PO SCH (14:29)
[2017-05-04] MEDS: LORATADINE 10 MG TABLET PO SCH (14:29)
[2017-05-04] MEDS: FLUTICASONE PROPIONATE 120 SPRAY INHALER NS SCH (14:29)
[2017-05-04] MEDS: DOCUSATE SODIUM 100 MG CAPSULE PO SCH (14:29)
[2017-05-04] MEDS: MULTIVIT-MIN/FA/LYCOPEN/LUTEIN 1 TAB TABLET PO SCH (14:29)
[2017-05-04] MEDS: levETIRAcetam 500 MG TABLET PO SCH (14:29)
[2017-05-04] MEDS: lamoTRIgine 100 MG TABLET PO SCH (14:30)
[2017-05-04] MEDS: OLANZapine 5 MG TABLET PO SCH (14:30)
[2017-05-04] MEDS: AZITHROMYCIN 250 MG TABLET PO SCH (14:30)
[2017-05-04] MEDS: CHLORHEXIDINE GLUCONATE 15 ML UDC MM SCH (14:30)
[2017-05-04] MEDS: ENOXAPARIN SODIUM 40 MG/0.4 ML SYRG SC SCH (14:30)
[2017-05-04] MEDS: FLUoxetine HCL 20 MG CAPSULE PO SCH (14:30)
[2017-05-04] MEDS: MEMANTINE HCL 10 MG TABLET PO SCH (14:30)
[2017-05-04] MEDS: CHOLECALCIFEROL 1,000 UNIT CAPSULE PO SCH (14:30)
[2017-05-04] MEDS: QUEtiapine FUMARATE 100 MG TABLET PO SCH (14:30)
[2017-05-04] MEDS: POLYETHYLENE GLYCOL 3350 119 GM BTL PO SCH (14:30)
[2017-05-04] MEDS: clonazePAM 1 MG TABLET PO SCH (14:30)
[2017-05-04 14:44] VITALS: BP 118/56
== END 2017-05-04 16:05 | disposition home or self-care (01) | DRG 179 ==
LOC: ER 13:03 → MS 16:19
PROVIDERS: ADMIT Internal Medicine; ATTEND Internal Medicine
DX: J69.0 Pneumonitis due to inhalation of food and vomit (principal); R94.5 Abnormal results of liver function studies; K59.00 Constipation, unspecified; F31.9 Bipolar disorder, unspecified; G40.909 Epilepsy, unspecified, not intractable, without status epilepticus; F79 Unspecified intellectual disabilities
CPT/HCPCS: 36415; 71010; 74000; 74020; 74178; 76705; 80048; 80053; 80074; 80076; 81001; 82150; 83605; 83690; 83735; 85007; 85025; 85027; 86738; 87040; 87081; 87400; 87430; 87902; 96365; 96375; 99284; J2405

== ENCOUNTER 2017-05-30 11:16 | Emergency (ER) | payer MEDICARE, MEDICAID ==
--- NOTE | 2017-05-30 11:42 | ERNOTE ---
Neuro HPI ER Record Date of Service: 05/30/17 Presenting Symptoms: confusion, difficulty walking - increased falling Time Seen by Provider: 05/30/17 11:31 Source: patient, other - worker Exam Limitations: no limitations Immunizations: IMMUNIZATION HX Immunizations Up to Date Yes History of Influenza Vaccine Yes Hx Pneumococcal Vaccination Yes Allergies/Adverse Reactions: Allergies Allergy/AdvReac Type Severity Reaction Status Date / Time brompheniramine maleate Allergy Intermediate Verified 05/30/17 11:19 [From Dimetapp (brompheniramine-PPA)] lithium [[place]] Allergy Intermediate Verified 05/30/17 11:19 phenylpropanolamine HCl Allergy Intermediate Verified 05/30/17 11:19 [From Dimetapp (brompheniramine-PPA)] diphenhydramine Allergy Verified 05/30/17 11:20 [From Benadryl] pimecrolimus [From Elidel] Allergy Verified 05/30/17 11:20 Home Medications: HOME MEDICATIONS Acetaminophen [Tylenol] 2 tab PO Q4HWA PRN 05/26/12 [Last Taken Unknown] Clonazepam [Klonopin] 1 mg PO BID 05/26/12 [Last Taken Unknown] Docusate Sodium [Colace] 100 mg PO DAILY 05/26/12 [Last Taken Unknown] Olanzapine [Zyprexa] 7.5 mg PO DAILY 05/26/12 [Last Taken Unknown] Polyethylene Glycol 3350 [Miralax] 17 gm PO DAILY 05/26/12 [Last Taken Unknown] QUEtiapine FUMARATE [Seroquel Xr] 200 mg PO DAILY 05/26/12 [Last Taken Unknown] Trazodone HCl 150 mg PO HS 05/26/12 [Last Taken Unknown] Bisacodyl [Women's Laxative] 5 mg PO DAILY PRN 07/29/16 [Last Taken Unknown] Cholecalciferol (Vitamin D3) [Vitamin D3] 2,000 unit PO DAILY 07/29/16 [Last Taken Unknown] FLUoxetine HCL [Prozac] 20 mg PO DAILY 07/29/16 [Last Taken Unknown] Fexofenadine HCl [Sejal Allergy] 180 mg PO DAILY 07/29/16 [Last Taken Unknown] Fluticasone Propionate [Flonase Allergy Relief] 1 spray NS DAILY 07/29/16 [Last Taken Unknown] LORazepam [Ativan] 1 mg PO TID PRN 07/29/16 [Last Taken Unknown] Levocarnitine [Carnitor] 330 mg PO TID 07/29/16 [Last Taken Unknown] lamoTRIgine [Lamictal] 100 mg PO DAILY 07/29/16 [Last Taken Unknown] levETIRAcetam [Keppra] 1,000 mg PO BID 07/29/16 [Last Taken Unknown] Hydroxyzine HCl 25 mg PO TID 04/28/17 [Last Taken Unknown] Solifenacin Succinate [Vesicare] 10 mg PO DAILY 04/28/17 [Last Taken Unknown] Doxycycline Monohydrate 100 mg PO BID #20 tablet 05/30/17 [Last Taken Unknown] Ofloxacin 1 drop OT BID #1 drops 05/30/17 [Last Taken Unknown] - History of Present Illness Narrative: Pt. comes in with c/o increased confusion, and increased unsteady gait for 6 hours. Pt. denies any SOB, CP, cough, abd pain, vomiting, or diarrhea. Worker does state that pt. has had a fever recently of 101.3 that worker treated with tylenol. Worker states that pt. is always confused but has become more so recently. Onset: upon waking Severity: mild Context: other - none - Character of Deficits New weakness: Present: general (diffuse) Additional Deficits: Present: decrease ability to walk, falling, off balance. Absent: vision problems, impaired speech, difficulty swallowing, decrease ability to stand, weakness, cannot walk, cannot stand, bed-ridden Baseline Cognition: Present: alert but confused Baseline Gait: Present: walks only w/ assistance Associated Symptoms: Reports: disoriented Prior Treament: Reports: recently seen. Denies: treated by physician, recently hospitalized, similar symptoms before, currently on antibiotics Review of Systems - Review of Systems Constitutional: Present: fever, weakness - mild. Absent: recent illness, chills , fatigue, malaise EYE: Present: no symptoms reported ENT: Present: no symptoms reported. Absent: nose pain, nose congestion, nasal drainage, sore throat Respiratory: Present: no symptoms reported. Absent: shortness of breath, cough , wheezing Cardiology: Present: no symptoms reported. Absent: chest pain, palpitations, edema Gastrointestinal/Abdominal: Present: no symptoms reported. Absent: nausea, vomiting, diarrhea Genitourinary: Present: no symptoms reported. Absent: frequency, decreased urinary output Musculoskeletal: Present: no symptoms reported. Absent: back pain, joint pain Neurological: Present: dizziness/light-headedness. Absent: numbness, tingling All Other Systems: All systems neg except as marked - Patient's Past Medical History Patient History - Medical: Anxiety, Bipolar, Depression, Seizures, Other Patient History - Cardiac/Respiratory: No pertinent hx Patient History - Cancer: No Hx of Cancer Patient History - Surgical Procedures: Hysterectomy Patient History - Other: None - Social History Abuse History: No History of abuse Psych History: Hx of Anxiety, Hx of Depression, Hx of Bipolar Disorder, Hx of Psychiatric Tx, Current tx/ever been on anti-depressants or anti-anxiety meds - Immunizations Immunizations Up to Date: Yes Hx Pneumococcal Vaccination: Yes History of Influenza Vaccine: Yes Physical Exam - Physical Exam General Appearance: Present: wd/wn, alert, no apparent distress Head Exam: Present: normal inspection, no evidence of injury Eye Exam: Normal inspection: bilateral Ears, Nose, Throat: Present: abnormal TM (R) - impacted with cerumen, sinus pain /drainage - white PND Neck: Present: normal inspection, nontender, supple, full range of motion. Absent: lymphadenopathy (R), lymphadenopathy (L) Respiratory: Present: no respiratory distress, normal breath sounds, no accessory muscle use, chest nontender, lungs clear Cardiovascular/Chest: Present: regular rate, rhythm, no murmur, normal peripheral pulses Gastrointestinal/Abdominal: Present: normal bowel sounds, nontender, nondistended, soft, no organomegaly Back Exam: Present: normal inspection Extremity Exam: Present: normal inspection Neurological Exam: Present: alert, oriented, normal mood/affect, no motor/ sensory deficits, quarryman II-XII nml as tested, normal cerebellar test Skin Exam: Present: normal color, warm/dry. Absent: pallor, skin rash ED Progress - Date and Time Seen: Date and Time: 05/30/17 13:06 Pt. LFTs are within normal range for pt. 05/30/17 13:54 As pt. is not in distress and is not hypoxic feel that pt. should try outpatient treatment first and then if not improved she would need to be treated as inpatient after that. - Results and Orders Patient's Lab Results:: I have reviewed the patient's lab results. Results and Orders: Abnormal Lab Results 01/08/1205/30/17 05/30/17 Range/Units 12:12 12:12 12:12 WBC 13.5 H (4.0-10.5) K/mm3 Lymphocytes % (Manual) 12 L (20-51) % Monocytes % (Manual) 15 H (0-9) % Neutrophils # (Manual) 8.9 H (1.3-6.0) K/mm3 Monocytes # (Manual) 2.0 H (0.0-1.0) k/mm3 Atypic/Reactive Lymphs 7 H (0-2) % ESR 69 H (0-15) mm/hr Sodium 143 H (132-142) mmol/L Plasma Sodium 143 H (130-142) mmol/L Carbon Dioxide 34.0 H (24-32.6) mmol/L BUN/Creatinine Ratio 23.9 H (9.0-21.6) AST 191 H (0-48) U/L ALT 159 H (19-67) U/L Alkaline Phosphatase 232 H (50-170) U/L C-Reactive Prot, Quant 11.4 H (0.0-0.9) mg/dL Total Protein 8.4 H (6.2-8.2) gm/dL Albumin 3.2 L (3.4-5.0) gm/dl - Vital Signs Patient's Vital Signs:: I have reviewed the patient's vital signs. Vital Signs: Vital Signs 05/30/17 11:25 Temperature 36.7 C Pulse Rate 92 Respiratory 12 Rate Blood Pressure 139/65 O2 Sat by Pulse 93 Oximetry - X-Ray X-Ray #1 X-Ray: chest Interpretation: Reviewed by me X-ray Comments: retrocardiac consolidation LLL - Progress/Reassessment Chief Complaint: Altered Mental Status Progress:: Improved Departure Clinical Impression: Pneumonia Qualifiers: Pneumonia type: due to unspecified organism Laterality: left Lung location: lower lobe of lung Qualified Code(s): J18.1 - Lobar pneumonia, unspecified organism Cerumen impaction Qualifiers: Laterality: right Qualified Code(s): H61.21 - Impacted cerumen, right ear - Departure Disposition: Home self-care Condition: Good Instructions: Community-Acquired Pneumonia, Adult, [id number] Additional Instructions: Please follow up with primary provider in 2-3 days if not improving Referrals: Tamia Lindo MD [Primary Care Provider] - Prescriptions: Doxycycline Monohydrate 100 mg PO BID #20 tablet Ofloxacin 1 drop OT BID #1 drops
[2017-05-30 12:11] VITALS: BP 121/64
[2017-05-30 12:18] LABS: Hematocrit 40.2 % (37.0-47.0); Hemoglobin 13.1 gm/dL (12.5-16.0); Mean Corpuscular Hgb Conc 32.6 g/dl (32-36); Mean Platelet Volume 9.5 fl (6.0-9.5); Platelet Count 318 K/mm3 (150-450); Red Blood Count 4.37 M/mm3 (4.2-5.4); Red Cell Distribution Width 13.6 % (11.5-14.0); White Blood Count 13.5 K/mm3 (4.0-10.5)
[2017-05-30 12:21] LABS: Total Cells Counted 100
[2017-05-30 12:31] LABS: Albumin * 3.2 gm/dl (3.4-5.0); Anion Gap 7.8 mmol/L (6.8-13.8); BUN/Creatinine Ratio 23.9 (9.0-21.6); Bilirubin, Total 0.4 mg/dL (0.0-1.1); CRP 11.4 mg/dL (0.0-0.9); Ca. Corrected For Albumin 9.6 mg/dL (8.4-10.2); Calcium * 9.3 mg/dL (7.9-10.9); Potassium 3.8 mmol/L (3.4-4.6); Total Protein 8.4 gm/dL (6.2-8.2)
[2017-05-30 12:46] LABS: Atypical (Reactive) Lymph 7 % (0-2); Lymphocyte 12 % (20-51); Monocyte 15 % (0-9); Neutrophil 66 % (42-75); Neutrophil # 8.9 K/mm3 (1.3-6.0); Platelet Estimate Normal (NORMAL)
[2017-05-30 12:47] LABS: RBC Morphology Normal (NORMAL)
[2017-05-30 13:25] LABS: Urine Bilirubin 1 mg/dl (NEGATIVE); Urine Blood Negative /ul (NEGATIVE); Urine Ketone Negative (NEGATIVE); Urine Nitrite Negative (NEGATIVE); Urine Protein 15 mg/dL (NEGATIVE); Urine Specific Gravity 1.025 SP.GR. (1.005-1.010); Urine Urobilinogen Normal (NORMAL)
[2017-05-30 13:44] LABS: Urine Appearance Slightly Cloudy; Urine Color Yellow
[2017-05-30 13:45] LABS: Urine Bacteria 1+; Urine RBC TRACE /hpf (0-5); Urine WBC TRACE /hpf (0-5)
== END 2017-05-30 14:32 | disposition home or self-care (01) ==
LOC: ER 11:16
PROC: 3E1B78Z Irrigation of Ear using Irrigating Substance, Via Natural or Artificial Opening (ICD-10-PCS; principal; 2017-05-30)
DX: J18.1 Lobar pneumonia, unspecified organism (principal); H61.21 Impacted cerumen, right ear; F31.9 Bipolar disorder, unspecified; F41.8 Other specified anxiety disorders

== ENCOUNTER 2017-07-11 14:28 | Inpatient (IN) | payer MEDICARE, MEDICAID ==
--- NOTE | 2017-07-11 14:59 | ERNOTE ---
Date of Service: 07/11/17 Time Seen by Provider: 07/11/17 14:32 Stated Complaint: FEVER Presenting Symptoms:: cough, fever, other - decreased eating and drinking Source: [facility] records, other - caregiver Exam Limitations: no limitations Immunizations: IMMUNIZATION HX Immunizations Up to Date Yes History of Influenza Vaccine Yes Hx Pneumococcal Vaccination Yes Allergies/Adverse Reactions: Allergies brompheniramine maleate [From Dimetapp (brompheniramine-PPA)] Allergy ( Intermediate, Verified 05/30/17 11:19) lithium [[place]] Allergy (Intermediate, Verified 05/30/17 11:19) phenylpropanolamine HCl [From Dimetapp (brompheniramine-PPA)] Allergy ( Intermediate, Verified 05/30/17 11:19) diphenhydramine [From Benadryl] Allergy (Verified 05/30/17 11:20) pimecrolimus [From Elidel] Allergy (Verified 05/30/17 11:20) Home Medications: HOME MEDICATIONS Acetaminophen [Tylenol] 2 tab PO Q4HWA PRN 05/26/12 [Last Taken Unknown] Clonazepam [Klonopin] 1 mg PO BID 05/26/12 [Last Taken Unknown] Docusate Sodium [Colace] 100 mg PO DAILY 05/26/12 [Last Taken Unknown] Olanzapine [Zyprexa] 7.5 mg PO DAILY 05/26/12 [Last Taken Unknown] Polyethylene Glycol 3350 [Miralax] 17 gm PO DAILY 05/26/12 [Last Taken Unknown] QUEtiapine FUMARATE [Seroquel Xr] 200 mg PO DAILY 05/26/12 [Last Taken Unknown] Trazodone HCl 150 mg PO HS 05/26/12 [Last Taken Unknown] Bisacodyl [Women's Laxative] 5 mg PO DAILY PRN 07/29/16 [Last Taken Unknown] Cholecalciferol (Vitamin D3) [Vitamin D3] 2,000 unit PO DAILY 07/29/16 [Last Taken Unknown] FLUoxetine HCL [Prozac] 20 mg PO DAILY 07/29/16 [Last Taken Unknown] Fexofenadine HCl [Sjeal Allergy] 180 mg PO DAILY 07/29/16 [Last Taken Unknown] Fluticasone Propionate [Flonase Allergy Relief] 1 spray NS DAILY 07/29/16 [Last Taken Unknown] LORazepam [Ativan] 1 mg PO TID PRN 07/29/16 [Last Taken Unknown] Levocarnitine [Carnitor] 330 mg PO TID 07/29/16 [Last Taken Unknown] lamoTRIgine [Lamictal] 100 mg PO DAILY 07/29/16 [Last Taken Unknown] levETIRAcetam [Keppra] 1,000 mg PO BID 07/29/16 [Last Taken Unknown] Hydroxyzine HCl 25 mg PO TID 04/28/17 [Last Taken Unknown] Solifenacin Succinate [Vesicare] 10 mg PO DAILY 04/28/17 [Last Taken Unknown] Doxycycline Monohydrate 100 mg PO BID #20 tablet 05/30/17 [Last Taken Unknown] Ofloxacin 1 drop OT BID #1 drops 05/30/17 [Last Taken Unknown] - History of Present Ilness Narrative: Pt. with hx of CP with behavioral disturbances and seizure activity comes in with her care team assistant and a week and three day history of pneumonia, cough, difficulty breathing, fever, decreased eating and drinking, and fatigue. manager skilled states that she saw Dr Lindo on Sunday and was diagnosed with pneumionia and started on abx and anti fever meds, but has worsened since. Timing: getting worse Severity: moderate Frequency/Possible Cause: Reports: frequent episodes, illness exposure Modifying Factors - Improves: Reports: nothing Modifying Factors - Worsens: Reports: nothing Associated Symptoms: Reports: cough, shortness of breath, wheezing, nasal congestion, nasal drainage Prior Treatment: Reports: recently seen, treated by physician, currently on antibiotics Review of Systems - Review of Systems Constitutional: Present: fever, weakness, fatigue, malaise. Absent: chills, weight loss, decreased activity level EYE: Present: no symptoms reported ENT: Present: nose congestion, nasal drainage. Absent: sore throat Respiratory: Present: shortness of breath, cough, wheezing Cardiology: Present: no symptoms reported. Absent: chest pain, palpitations, edema Gastrointestinal/Abdominal: Present: eating less, drinking less. Absent: vomiting, diarrhea, abdominal pain Genitourinary: Present: no symptoms reported Musculoskeletal: Present: no symptoms reported. Absent: back pain, joint pain Skin: Present: no symptoms reported. Absent: rash, change in color Neurological: Present: no symptoms reported. Absent: headache, dizziness/light- headedness, numbness, tingling All Other Systems: All systems neg except as marked - Patient's Past Medical History Patient History - Medical: Anxiety, Bipolar, Depression, Seizures Patient History - Cardiac/Respiratory: No pertinent hx Patient History - Cancer: No Hx of Cancer Patient History - Surgical Procedures: Hysterectomy Patient History - Other: None - Social History Abuse History: No History of abuse Psych History: Hx of Anxiety, Hx of Depression, Hx of Bipolar Disorder, Hx of Psychiatric Tx, Current tx/ever been on anti-depressants or anti-anxiety meds - Immunizations Immunizations Up to Date: Yes Hx Pneumococcal Vaccination: Yes History of Influenza Vaccine: Yes Physical Exam - Physical Exam General Appearance: Present: wd/wn, alert, no apparent distress Head Exam: Present: normal inspection, no evidence of injury, no tenderness w palpation Eye Exam: Normal inspection: bilateral Ears, Nose, Throat: Present: nasal congestion, normal pharynx Neck: Present: normal inspection, nontender, supple, full range of motion Respiratory: Present: no respiratory distress, no accessory muscle use, chest nontender, crackles - BUL fine Cardiovascular/Chest: Present: regular rate, rhythm, no murmur, normal peripheral pulses Gastrointestinal/Abdominal: Present: normal bowel sounds, nontender, nondistended, soft, no organomegaly Back Exam: Present: normal inspection Extremity Exam: Present: normal inspection Neurological Exam: Present: alert, oriented, normal mood/affect - for pt, no motor/sensory deficits Skin Exam: Present: cool/dry, pallor ED Progress - Date and Time Seen: Date and Time: 07/11/17 17:[address] Hamilton and she agrees to admit pt. for observationa dn wants her to be on Rocephin and Zithromax and continue fluids at 125 after her bolus is complete - Results and Orders Patient's Lab Results:: I have reviewed the patient's lab results. Results and Orders: Laboratory Results - last 24 hr 07/11/17 07/11/17 07/11/17 15:00 15:00 15:00 WBC 5.8 RBC 4.10 L Hgb 12.1 L Hct 36.3 L MCV 88.5 MCH 29.5 MCHC 33.3 RDW 13.2 Plt Count 321 MPV 9.3 Immature Gran % (Auto) 0.50 H Immature Gran # (Auto) 0.03 Neutrophils % 77.3 H Lymphocytes % 12.8 L Monocytes % 9.2 H Eosinophils % 0.0 Basophils % 0.2 Nucleated RBC % 0.0 Neutrophils # 4.5 Lymphocytes # 0.7 L Monocytes # 0.5 Eosinophils # 0.0 Absolute Basophils 0.0 ESR 97 H Sodium Plasma Sodium Potassium Chloride Carbon Dioxide Anion Gap BUN Creatinine Est GFR (Non-Af Amer) BUN/Creatinine Ratio Random Glucose Lactic Acid, Venous Calcium Calcium Adj for Albumin Total Bilirubin AST ALT Alkaline Phosphatase C-Reactive Prot, Quant Total Protein Albumin Procalcitonin 0.90 H Urine Color Urine Appearance Urine pH Ur Specific [place] Urine Protein Urine Glucose (UA) Urine Ketones Urine Blood Urine Nitrate Urine Bilirubin Urine Ictotest Prot Sulfosalicylic Acd Urine Urobilinogen Ur Leukocyte Esterase Urine RBC Urine WBC Ur Epithelial Cells Urine Bacteria Urine Culture Comments Influenza Type A Ag Influenza Type B Ag Group A Strep Rapid 07/11/17 07/11/17 07/11/17 15:00 15:00 15:00 WBC RBC Hgb Hct MCV MCH MCHC RDW Plt Count MPV Immature Gran % (Auto) Immature Gran # (Auto) Neutrophils % Lymphocytes % Monocytes % Eosinophils % Basophils % Nucleated RBC % Neutrophils # Lymphocytes # Monocytes # Eosinophils # Absolute Basophils ESR Sodium 139 Plasma Sodium 140 Potassium 3.3 L Chloride 101 Carbon Dioxide 33.1 H Anion Gap 8.2 BUN 17 Creatinine 0.86 Est GFR (Non-Af Amer) 73 BUN/Creatinine Ratio 19.8 Random Glucose 136 H Lactic Acid, Venous 1.3 Calcium 9.2 Calcium Adj for Albumin 9.9 Total Bilirubin 0.3 AST 113 H ALT 164 H Alkaline Phosphatase 234 H C-Reactive Prot, Quant Less than 0.2 Total Protein 7.6 Albumin 2.7 L Procalcitonin Urine Color Urine Appearance Urine pH Ur Specific [place] Urine Protein Urine Glucose (UA) Urine Ketones Urine Blood Urine Nitrate Urine Bilirubin Urine Ictotest Prot Sulfosalicylic Acd Urine Urobilinogen Ur Leukocyte Esterase Urine RBC Urine WBC Ur Epithelial Cells Urine Bacteria Urine Culture Comments Influenza Type A Ag Negative Influenza Type B Ag Negative Group A Strep Rapid 07/11/17 07/11/17 15:00 16:00 WBC RBC Hgb Hct MCV MCH MCHC RDW Plt Count MPV Immature Gran % (Auto) Immature Gran # (Auto) Neutrophils % Lymphocytes % Monocytes % Eosinophils % Basophils % Nucleated RBC % Neutrophils # Lymphocytes # Monocytes # Eosinophils # Absolute Basophils ESR Sodium Plasma Sodium Potassium Chloride Carbon Dioxide Anion Gap BUN Creatinine Est GFR (Non-Af Amer) BUN/Creatinine Ratio Random Glucose Lactic Acid, Venous Calcium Calcium Adj for Albumin Total Bilirubin AST ALT Alkaline Phosphatase C-Reactive Prot, Quant Total Protein Albumin Procalcitonin Urine Color Yellow Urine Appearance Clear Urine pH 6.0 Ur Specific [place] >=1.030 Urine Protein 15 H Urine Glucose (UA) Negative Urine Ketones Negative Urine Blood Negative Urine Nitrate Negative Urine Bilirubin 1 H Urine Ictotest Negative Prot Sulfosalicylic Acd Negative Urine Urobilinogen Normal Ur Leukocyte Esterase Negative Urine RBC None seen Urine WBC None seen Ur Epithelial Cells None seen Urine Bacteria None seen Urine Culture Comments Culture to follow Influenza Type A Ag Influenza Type B Ag Group A Strep Rapid Negative - Vital Signs Patient's Vital Signs:: I have reviewed the patient's vital signs. - X-Ray X-Ray #1 X-Ray: chest Interpretation: Reviewed by me X-ray Comments: Chest Single View *: Worsening symmetric hypoinflation. Bilateral right > left mid to lower lung field pulmonary opacities noted. Mildly increased vascular markings suggested. No pneumothorax or pleural fluid collections apparent. Mild cardiomegaly, stable. Vascular calcification overlying the aorta, stable. Trachea is in normal position given patient positioning. Osseous structures are grossly intact. Decreased mineralization of bone suggestive of underlying osteopenia or osteoporosis. IMPRESSION: 1. Worsening hypoinflation, and worsening right greater than left pulmonary opacities noted. Consider worsening atelectasis versus multifocal pneumonia. 2. Mildly increased pulmonary vascular markings. 3. Stable cardiomegaly. Electronically signed by Yanet Barfield M.D.. - Progress/Reassessment Progress:: Unchanged Departure Clinical Impression: Dehydration, Failure of outpatient treatment Pneumonia Qualifiers: Pneumonia type: due to unspecified organism Laterality: bilateral Lung location : unspecified part of lung Qualified Code(s): J18.9 - Pneumonia, unspecified organism - Departure Disposition: [facility] Condition: Serious
[2017-07-11 15:10] LABS: Hematocrit 36.3 % (37.0-47.0); Hemoglobin 12.1 gm/dL (12.5-16.0); Mean Cell Volume 88.5 fl (78-100); Mean Corpuscular Hemoglobin 29.5 pg (27-31); Mean Corpuscular Hgb Conc 33.3 g/dl (32-36); Mean Platelet Volume 9.3 fl (6.0-9.5); Neutrophil # 4.5 K/mm3 (1.3-6.0); Neutrophil % 77.3 % (42-75.0); Platelet Count 321 K/mm3 (150-450); Red Cell Distribution Width 13.2 % (11.5-14.0); White Blood Count 5.8 K/mm3 (4.0-10.5)
[2017-07-11 15:25] LABS: ALT 164 U/L (19-67); AST 113 U/L (0-48); Albumin * 2.7 gm/dl (3.4-5.0); Alkaline Phosphatase * 234 U/L (50-170); Anion Gap 8.2 mmol/L (6.8-13.8); BUN/Creatinine Ratio 19.8 (9.0-21.6); Bilirubin, Total 0.3 mg/dL (0.0-1.1); Blood Urea Nitrogen 17 mg/dL (3-23); Ca. Corrected For Albumin 9.9 mg/dL (8.4-10.2); Calcium * 9.2 mg/dL (7.9-10.9); Carbon Dioxide 33.1 mmol/L (24-32.6); Chloride 101 mmol/L (97-106); Glucose * 136 mg/dL (70-110); Potassium 3.3 mmol/L (3.4-4.6); Sodium 139 mmol/L (132-142); Total Protein 7.6 gm/dL (6.2-8.2)
[2017-07-11 16:14] LABS: Urine Bilirubin 1 mg/dl (NEGATIVE); Urine Blood Negative /ul (NEGATIVE); Urine Ketone Negative (NEGATIVE); Urine Nitrite Negative (NEGATIVE); Urine Protein 15 mg/dL (NEGATIVE); Urine Specific Gravity >=1.030 SP.GR. (1.005-1.010); Urine Urobilinogen Normal (NORMAL)
[2017-07-11 16:23] LABS: Urine Appearance Clear; Urine Bacteria None Seen; Urine Color Yellow; Urine RBC None Seen /hpf (0-5); Urine WBC None Seen /hpf (0-5)
[2017-07-11] MEDS ORDERED: NORMAL SALINE 1,000 ML IV ONE (17:02)
[2017-07-11] MEDS ORDERED: AZITHROMYCIN 500 MG in DEXTROSE 5 % IN WATER 250 ML IV ONE ×2 (17:15)
[2017-07-11] MEDS ORDERED: ACETAMINOPHEN 325 MG TABLET PO PRN (20:07)
--- NOTE | 2017-07-11 20:12 | HP ---
Chief Complaint - Chief Complaint Date of Service: 07/11/17 Time of Service: 19:44 Chief Complaint: fever, cough History of Present Illness: Nisa is a 52 year old female patient of Dr. Lindo who resides in a snf with a PMH of MR, bipolar disorder and seizure disorder who presented to the ER today a 7+ day history of cough, fever, fatigue and dyspnea. Patient previously had seen dr. lindo on 07/09/17 who diagnosed her with pneumonia and started her on Levaquin 500 mg po daily. Prior to that, she was seen in the ER on 05/29/17 and again diagnosed with pneumonia and treated with doxycycline 100mg po bid x 10 days. Prior to that episode, she was admitted the first part of april 2017 for pneumonia and discharged on oral augmentin. ER evaluation showed temp 37.6, hr 78, bp 91/42, sats 96% on RA. wbc normal at 5.8 with 77.3 neutrophils. ESR significantly elevated at 97. patient has chronically elevated liver enzymes. ER labs showed AST 113 and ALT 164, which is near patient's normal. UA positive for 15 protein and 1 bili. flu and strep negative. Chest xray showed worsening mid-lower lung pneumonia bilateral with Right worse than left. Given her MR history, there is a concern that her pneumonia may be aspiration in nature. Patient is to be admitted for pneumonia , failure of outpatient treatment for IV antibiotics. - Patient's Past Medical History Patient History - Medical: Anxiety, Bipolar, Depression, Seizures Patient History - Cardiac/Respiratory: No pertinent hx Patient History - Cancer: No Hx of Cancer Patient History - Surgical Procedures: Hysterectomy Patient History - Other: None LMP (females 10-50): Menopausal - Social History Living Situations: other Abuse History: No History of abuse Psych History: Hx of Anxiety, Hx of Depression, Hx of Bipolar Disorder, Hx of Psychiatric Tx, Current tx/ever been on anti-depressants or anti-anxiety meds Smoking Status: Never smoker Alcohol Use: none Drug Use: none - Immunizations Immunizations Up to Date: Yes Hx Pneumococcal Vaccination: Yes History of Influenza Vaccine: Yes Review Of Systems (GEN) - Review of Systems Generalized/Overall Review: Present: No Symptoms Reported - unable to obtain due to medical status of patient Immunizations: IMMUNIZATION HX Immunizations Up to Date Yes History of Influenza Vaccine Yes Hx Pneumococcal Vaccination Yes Allergies/Adverse Reactions: Allergies Allergy/AdvReac Type Severity Reaction Status Date / Time brompheniramine maleate Allergy Intermediate Verified 05/30/17 11:19 [From Dimetapp (brompheniramine-PPA)] lithium [Pilgrim] Allergy Intermediate Verified 05/30/17 11:19 phenylpropanolamine HCl Allergy Intermediate Verified 05/30/17 11:19 [From Dimetapp (brompheniramine-PPA)] diphenhydramine Allergy Verified 05/30/17 11:20 [From Benadryl] pimecrolimus [From Elidel] Allergy Verified 05/30/17 11:20 Home Medications: HOME MEDICATIONS Acetaminophen [Tylenol] 2 tab PO Q4HWA PRN 05/26/12 [Last Taken Unknown] Clonazepam [Klonopin] 1 mg PO BID 05/26/12 [Last Taken Unknown] Docusate Sodium [Colace] 100 mg PO DAILY 05/26/12 [Last Taken Unknown] Olanzapine [Zyprexa] 7.5 mg PO DAILY 05/26/12 [Last Taken Unknown] Polyethylene Glycol 3350 [Miralax] 17 gm PO DAILY 05/26/12 [Last Taken Unknown] QUEtiapine FUMARATE [Seroquel Xr] 200 mg PO DAILY 05/26/12 [Last Taken Unknown] Trazodone HCl 150 mg PO HS 05/26/12 [Last Taken Unknown] Bisacodyl [Women's Laxative] 5 mg PO DAILY PRN 07/29/16 [Last Taken Unknown] Cholecalciferol (Vitamin D3) [Vitamin D3] 2,000 unit PO DAILY 07/29/16 [Last Taken Unknown] FLUoxetine HCL [Prozac] 20 mg PO DAILY 07/29/16 [Last Taken Unknown] Fexofenadine HCl [Sejal Allergy] 180 mg PO DAILY 07/29/16 [Last Taken Unknown] Fluticasone Propionate [Flonase Allergy Relief] 1 spray NS DAILY 07/29/16 [Last Taken Unknown] LORazepam [Ativan] 1 mg PO TID PRN 07/29/16 [Last Taken Unknown] Levocarnitine [Carnitor] 330 mg PO TID 07/29/16 [Last Taken Unknown] lamoTRIgine [Lamictal] 100 mg PO DAILY 07/29/16 [Last Taken Unknown] levETIRAcetam [Keppra] 1,000 mg PO BID 07/29/16 [Last Taken Unknown] Hydroxyzine HCl 25 mg PO TID 04/28/17 [Last Taken Unknown] Solifenacin Succinate [Vesicare] 10 mg PO DAILY 04/28/17 [Last Taken Unknown] Doxycycline Monohydrate 100 mg PO BID #20 tablet 05/30/17 [Last Taken Unknown] Ofloxacin 1 drop OT BID #1 drops 05/30/17 [Last Taken Unknown] Exam - Exam Vital Signs: Vital Signs - Last Taken Temp 37.6 C 07/11/17 14:43 Pulse 78 07/11/17 17:35 Resp 14 07/11/17 17:35 BP 91/42 07/11/17 17:35 Pulse Ox 96 07/11/17 17:35 Constitutional: Present: No distress, Other - somewhat cooperative with exam, saying that she wants to sleep., Looks Older than stated age ENT Exam: Present: hearing grossly normal Eye Exam: bilateral eye: normal inspection Neck: Present: lymphadenopathy (R), lymphadenopathy (L) Breasts: Present: Exam deferred Respiratory: Present: no respiratory distress, no accessory muscle use, rales - right and left lower lobes. Cardiovascular/Chest: Present: regular rate, rhythm, no chest tenderness Peripheral Pulses: dorsalis-pedis (R): 1+, dorsalis-pedis (L): 1+, radial (R): 2 +, radial (L): 2+ Abdomen: Present: soft, nontender, nondistended /Rectal: Present: Exam deferred Extremity: Present: non-tender, normal inspection Skin Exam: Present: warm/dry, no cyanosis, pallor Diagnostic Studies: Laboratory Results WBC 5.8 K/mm3 (4.0-10.5) 07/11/17 15:00 RBC 4.10 M/mm3 (4.2-5.4) L 07/11/17 15:00 Hgb 12.1 gm/dL (12.5-16.0) L 07/11/17 15:00 Hct 36.3 % (37.0-47.0) L 07/11/17 15:00 MCV 88.5 fl (78-100) 07/11/17 15:00 MCH 29.5 pg (27-31) 07/11/17 15:00 MCHC 33.3 g/dl (32-36) 07/11/17 15:00 RDW 13.2 % (11.5-14.0) 07/11/17 15:00 Plt Count 321 K/mm3 (150-450) 07/11/17 15:00 MPV 9.3 fl (6.0-9.5) 07/11/17 15:00 Immature Gran % (Auto) 0.50 % (0.001-0.429) H 07/11/17 15:00 Immature Gran # (Auto) 0.03 K/mm3 (0.000-0.0310) 07/11/17 15:00 Neutrophils % 77.3 % (42-75.0) H 07/11/17 15:00 Lymphocytes % 12.8 % (20-51) L 07/11/17 15:00 Monocytes % 9.2 % (0.0-9) H 07/11/17 15:00 Eosinophils % 0.0 % (0.0-3.0) 07/11/17 15:00 Basophils % 0.2 % (0.0-1.0) 07/11/17 15:00 Nucleated RBC % 0.0 k/mm3 (0-1) 07/11/17 15:00 Neutrophils # 4.5 K/mm3 (1.3-6.0) 07/11/17 15:00 Lymphocytes # 0.7 k/mm3 (1.5-3.5) L 07/11/17 15:00 Monocytes # 0.5 k/mm3 (0.0-1.0) 07/11/17 15:00 Eosinophils # 0.0 k/mm3 (0.0-0.7) 07/11/17 15:00 Absolute Basophils 0.0 k/mm3 (0.0-0.1) 07/11/17 15:00 ESR 97 mm/hr (0-15) H 07/11/17 15:00 Sodium 139 mmol/L (132-142) 07/11/17 15:00 Plasma Sodium 140 mmol/L (130-142) 07/11/17 15:00 Potassium 3.3 mmol/L (3.4-4.6) L 07/11/17 15:00 Chloride 101 mmol/L (97-106) 07/11/17 15:00 Carbon Dioxide 33.1 mmol/L (24-32.6) H 07/11/17 15:00 Anion Gap 8.2 mmol/L (6.8-13.8) 07/11/17 15:00 BUN 17 mg/dL (3-23) 07/11/17 15:00 Creatinine 0.86 mg/dL (0.4-1.4) 07/11/17 15:00 Est GFR (Non-Af Amer) 73 mL/min (60-130) 07/11/17 15:00 BUN/Creatinine Ratio 19.8 (9.0-21.6) 07/11/17 15:00 Random Glucose 136 mg/dL (70-110) H 07/11/17 15:00 Lactic Acid, Venous 1.3 mmol/L (0.4-1.9) 07/11/17 15:00 Calcium 9.2 mg/dL (7.9-10.9) 07/11/17 15:00 Calcium Adj for Albumin 9.9 mg/dL (8.4-10.2) 07/11/17 15:00 Total Bilirubin 0.3 mg/dL (0.0-1.1) 07/11/17 15:00 AST 113 U/L (0-48) H 07/11/17 15:00 ALT 164 U/L (19-67) H 07/11/17 15:00 Alkaline Phosphatase 234 U/L (50-170) H 07/11/17 15:00 C-Reactive Prot, Quant Less than 0.2 mg/dL (0.0-0.9) 07/11/17 15:00 Total Protein 7.6 gm/dL (6.2-8.2) 07/11/17 15:00 Albumin 2.7 gm/dl (3.4-5.0) L 07/11/17 15:00 Procalcitonin 0.90 ng/mL (0.05-0.50) H 07/11/17 15:00 Urine Color Yellow 07/11/17 16:00 Urine Appearance Clear 07/11/17 16:00 Urine pH 6.0 pH (5.0-7.0) 07/11/17 16:00 Ur Specific [place] >=1.030 SP.GR. (1.005-1.010) 07/11/17 16:00 Urine Protein 15 mg/dL (NEGATIVE) H 07/11/17 16:00 Urine Glucose (UA) Negative mg/dL (NEGATIVE) 07/11/17 16:00 Urine Ketones Negative mg/dL (NEGATIVE) 07/11/17 16:00 Urine Blood Negative /ul (NEGATIVE) 07/11/17 16:00 Urine Nitrate Negative (NEGATIVE) 07/11/17 16:00 Urine Bilirubin 1 mg/dl (NEGATIVE) H 07/11/17 16:00 Urine Ictotest Negative (NEGATIVE) 07/11/17 16:00 Prot Sulfosalicylic Acd Negative mg/dL (0) 07/11/17 16:00 Urine Urobilinogen Normal EU/dl (NORMAL) 07/11/17 16:00 Ur Leukocyte Esterase Negative /ul (NEGATIVE) 07/11/17 16:00 Urine RBC None seen /hpf (0-5) 07/11/17 16:00 Urine WBC None seen /hpf (0-5) 07/11/17 16:00 Ur Epithelial Cells None seen /hpf (0-5) 07/11/17 16:00 Urine Bacteria None seen (NONE) 07/11/17 16:00 Urine Culture Comments Culture to follow 07/11/17 16:00 Influenza Type A Ag Negative (NEGATIVE) 07/11/17 15:00 Influenza Type B Ag Negative (NEGATIVE) 07/11/17 15:00 Group A Strep Rapid Negative (NEGATIVE) 07/11/17 15:00 Assessment/Plan - Narrative Narrative: Nisa is a 52 year old female who was admitted with bilateral pneumonia, failure of outpatient treatment. Pneumonia - chest xray c/w bilat RLL and LLL pneumonia (R>L) - given history of MR and history of aspiration, must be assumed that her pneumonia could potentially be aspiration in nature. - given this risk, will cover with IV zosyn abx. - aspiration precautions while admitted. - recheck labs in the am. Dehydration - patient has poor oral intake since becoming ill - blood pressure also running on the low end - already received a bolus of iv fluid in the ER - continue iv fluids overnight for rehydration. MR - provide safe enviroment for pt - bed alarms, etc. - helmet when pt is up. Elevated liver enzymes - chronic in nature. - values today are c/w patient's recent liver panel trend Seizures, - chronic - continue home medications. GI Proph: protonix. VTE: lovenox Code status: Full code. - Assessment/Plan (1) Dehydration Problem: Acute (2) Failure of outpatient treatment Problem: Acute (3) Pneumonia Problem: Acute Qualifiers: Pneumonia type: due to unspecified organism Laterality: bilateral Lung location: unspecified part of lung Qualified Code(s): J18.9 - Pneumonia, unspecified organism (4) Elevated liver enzymes Problem: Chronic (5) Bipolar 1 disorder Problem: Chronic (6) Mental retardation Problem: Chronic (7) Seizure Problem: Chronic
[2017-07-11] MEDS: NORMAL SALINE 1,000 ML IV PRN (23:25)
[2017-07-11] MEDS: SACCHAROMYCES BOULARDII 250 MG CAPSULE PO SCH (23:26)
[2017-07-12] MEDS ORDERED: ACETAMINOPHEN 325 MG TABLET PO PRN (00:07)
[2017-07-12] MEDS: PIPERACILLIN SODIUM/TAZOBACTAM 3.375 GM in DEXTROSE 5 % IN WATER 100 ML IV SCH ×10 (00:19→17:19)
[2017-07-12] MEDS ORDERED: BISACODYL 5 MG TABLET.DR PO PRN (00:20)
[2017-07-12] MEDS ORDERED: [UNRECOGNIZED DRUG - OTHER] PO PRN (02:10)
[2017-07-12] MEDS ORDERED: LORazepam 1 MG TABLET PO PRN (02:10)
[2017-07-12] MEDS ORDERED: POLYVINYL ALCOHOL 150 DROP BTL EACHEYE PRN ×2 (02:36→11:45)
[2017-07-12] MEDS ORDERED: HYDROCORTISONE 30 APPL TUBE TP PRN ×2 (02:38→07:00)
[2017-07-12] MEDS ORDERED: guaiFENesin/DEXTROMETHORPHAN 118 ML BTL PO PRN ×3 (02:43→11:45)
[2017-07-12] MEDS ORDERED: ENOXAPARIN SODIUM 100 MG/ML SYRG SC ONE (04:41)
[2017-07-12] MEDS: PANTOPRAZOLE SODIUM 40 MG TABLET.EC PO SCH ×2 (04:46→07:15)
[2017-07-12] MEDS: ENOXAPARIN SODIUM 40 MG/0.4 ML SYRG SC SCH (04:47)
[2017-07-12 06:58] LABS: Hematocrit 36.9 % (37.0-47.0); Hemoglobin 11.9 gm/dL (12.5-16.0); Mean Cell Volume 89.6 fl (78-100); Mean Corpuscular Hemoglobin 28.9 pg (27-31); Mean Corpuscular Hgb Conc 32.2 g/dl (32-36); Mean Platelet Volume 9.2 fl (6.0-9.5); Neutrophil # 2.5 K/mm3 (1.3-6.0); Neutrophil % 55.7 % (42-75.0); Platelet Count 311 K/mm3 (150-450); Red Blood Count 4.12 M/mm3 (4.2-5.4); Red Cell Distribution Width 13.3 % (11.5-14.0); White Blood Count 4.5 K/mm3 (4.0-10.5)
[2017-07-12 07:19] LABS: Anion Gap 9.6 mmol/L (6.8-13.8); BUN/Creatinine Ratio 22.6 (9.0-21.6); Calcium * 8.4 mg/dL (7.9-10.9); Carbon Dioxide 30.6 mmol/L (24-32.6); Estimated Creat Clear 73.9; Potassium 3.2 mmol/L (3.4-4.6)
[2017-07-12] MEDS: NORMAL SALINE 1,000 ML IV PRN ×3 (08:01→23:19)
[2017-07-12] MEDS ORDERED: OFLOXACIN 50 DROP BTL OT SCH (09:00)
[2017-07-12] MEDS ORDERED: lamoTRIgine 100 MG TABLET PO SCH (09:00)
[2017-07-12] MEDS: SACCHAROMYCES BOULARDII 250 MG CAPSULE PO SCH ×2 (09:44→20:13)
[2017-07-12] MEDS: DOCUSATE SODIUM 100 MG CAPSULE PO SCH ×2 (09:44→20:23)
[2017-07-12] MEDS: TOLTERODINE TARTRATE 4 MG CAPSULE PO SCH (09:45)
[2017-07-12] MEDS: hydrOXYzine HCL 25 MG TABLET PO SCH ×3 (09:45→17:19)
[2017-07-12] MEDS: LORATADINE 10 MG TABLET PO SCH (09:45)
[2017-07-12] MEDS: levETIRAcetam 500 MG TABLET PO SCH ×2 (09:45→20:14)
[2017-07-12] MEDS: clonazePAM 1 MG TABLET PO SCH ×2 (09:45→20:23)
[2017-07-12] MEDS: POLYETHYLENE GLYCOL 3350 119 GM BTL PO SCH (09:46)
[2017-07-12] MEDS: MEMANTINE HCL 10 MG TABLET PO SCH ×2 (09:47→20:15)
[2017-07-12] MEDS: CHLORHEXIDINE GLUCONATE 480 ML BTL MM SCH ×2 (09:48→20:16)
[2017-07-12] MEDS: FLUoxetine HCL 20 MG CAPSULE PO SCH (09:48)
[2017-07-12] MEDS: QUEtiapine FUMARATE 100 MG TABLET PO SCH (09:49)
[2017-07-12] MEDS: OLANZapine 5 MG TABLET PO SCH (09:49)
--- NOTE | 2017-07-12 19:22 | PN ---
Subjective - Date and Time Seen Date: 07/12/17 Time: 10:20 Subjective Narrative: Patient seen and examined at bedside. No acute issues overnight. Objective Objective Narrative: Unable to obtain secondary to the patient's underlying MR - Vitals Vitals: Last Vital Signs Temp 37.0 C 07/12/17 18:55 Pulse 84 07/12/17 18:55 Resp 20 07/12/17 18:55 BP 125/65 07/12/17 18:55 Pulse Ox 94 07/12/17 18:55 - Exam Constitutional: Present: Alert, No distress, Thin and frail ENT Exam: Present: moist mucous membranes Respiratory: Present: no respiratory distress, no accessory muscle use, other - Oral secretions present with gurgling sounds in throat secondary to the patient' s decreased ability to handle her secretions. These sounds are referred into her lungs when auscultating but are not truly coming from her lungs but rather her oropharynx. Cardiovascular/Chest: Present: regular rate, rhythm, no edema Abdomen: Present: soft, nontender, nondistended Extremity: Present: no pedal edema Skin Exam: Present: normal color, warm/dry Neurologic: Present: alert, other - MR at baseline Assessment/Plan Plan Narrative: Continue current cares. Continue current IV antibiotics and await final sputum and blood cultures and sensitivities and adjust antibiotics accordingly. If we are unable to obtain a good sputum sample, I will likely switch the patient to clindamycin tomorrow as her clinical picture is consistent with aspiration pneumonia. Continue aspiration precautions. PT and [employer] evaluation and treatment. Patient will need a follow-up CXR in approximately 4 weeks to monitor for resolution. - Problems/Diagnosis (1) Aspiration pneumonia Problem: Acute Qualifiers: Laterality: right Lung location: unspecified part of lung (2) Hypokalemia Problem: Acute (3) Dysphagia Problem: Chronic (4) Mental retardation Problem: Chronic (5) Elevated liver enzymes Problem: Chronic
[2017-07-12] MEDS: traZODone HCL 150 MG TABLET PO SCH (20:13)
[2017-07-12] MEDS: lamoTRIgine 100 MG TABLET PO SCH (20:15)
[2017-07-12] MEDS: OFLOXACIN 50 DROP BTL OT SCH (20:24)
[2017-07-12] MEDS: PREVIDENT DT SCH (20:25)
[2017-07-13] MEDS: PIPERACILLIN SODIUM/TAZOBACTAM 3.375 GM in DEXTROSE 5 % IN WATER 100 ML IV SCH ×6 (00:34→12:26)
[2017-07-13] MEDS: ENOXAPARIN SODIUM 40 MG/0.4 ML SYRG SC SCH (00:35)
[2017-07-13] MEDS: PANTOPRAZOLE SODIUM 40 MG TABLET.EC PO SCH (06:24)
[2017-07-13 06:27] LABS: Anion Gap 9.6 mmol/L (6.8-13.8); BUN/Creatinine Ratio 10.6 (9.0-21.6); Bilirubin Direct 0.1 mg/dL (0.0-0.3); Bilirubin, Total 0.3 mg/dL (0.0-1.1); Bilirubin,Indirect 0.2 mg/dL (0.1-0.7); Carbon Dioxide 29.2 mmol/L (24-32.6); Estimated Creat Clear 83.4; Potassium 2.8 mmol/L (3.4-4.6); Total Protein 6.1 gm/dL (6.2-8.2)
[2017-07-13] MEDS ORDERED: POTASSIUM CHLORIDE 20 MEQ TABLET.SA PO ONE (07:14)
--- NOTE | 2017-07-13 07:17 | PN ---
Subjective - Date and Time Seen Date: 07/13/17 Time: 07:15 Subjective Narrative: patient seen today alert in bed, pt stated she have a cough but no sputum. Objective - Review of Systems Generalized/Overall Review: Reports: No Symptoms Reported EENTM: Reports: No Symptoms Reported Respiratory: Reports: Cough, Wheezing Cardiac: Reports: No Symptoms Reported Abdominal: Reports: No Symptoms Reported Genitourinary Symptoms: Reports: No Symptoms Reported Musculoskeletal Complaints: Reports: No Symptoms Reported Neurological: Reports: No Symptoms Reported - Vitals Vitals: Last Vital Signs Temp 36.6 C 07/13/17 06:50 Pulse 61 07/13/17 06:50 Resp 20 07/13/17 06:50 BP 125/69 07/13/17 06:50 Pulse Ox 90 07/13/17 06:50 - Abnormal Lab Findings Abnormal Lab Findings: Abnormal Lab Results 07/13/17 Range/Units 06:04 Potassium 2.8 L (3.4-4.6) mmol/L Est GFR (Non-Af Amer) 147 H (60-130) mL/min AST 49 H (0-48) U/L ALT 82 H (19-67) U/L Alkaline Phosphatase 197 H (50-170) U/L Total Protein 6.1 L (6.2-8.2) gm/dL Albumin 2.0 L (3.4-5.0) gm/dl - Exam Constitutional: Present: Alert, Oriented x3, Cooperative, No distress, Middle aged ENT Exam: Present: hearing grossly normal Neck: Present: full range of motion Respiratory: Present: decreased breath sounds, rhonchi, wheezing Cardiovascular/Chest: Present: normal peripheral pulses, regular rate, rhythm, no chest tenderness, no edema Abdomen: Present: Normal bowel sounds, soft, nontender /Rectal: Present: Exam deferred Extremity: Present: normal range of motion, non-tender, normal inspection Skin Exam: Present: warm/dry Neurologic: Present: alert Appearance: Present: appropriate appearance Eye contact: Present: good eye contact Thoughts: Present: normal thought pattern Assessment/Plan Plan Narrative: Hypokalemia supplemented monitor CMP Pneumonia - chest xray c/w bilat RLL and LLL pneumonia (R>L) - given history of MR and history of aspiration, must be assumed that her pneumonia could potentially be aspiration in nature. - given this risk, will cover with IV zosyn abx. - aspiration precautions while admitted. - Monitor CMP in am - oral care MR - provide safe enviroment for pt - bed alarms, etc. - helmet when pt is up. Elevated liver enzymes - chronic in nature. Chronic Seizures: no activity - continue home medications. Dehydration- resolved - patient has poor oral intake since becoming ill - blood pressure also running on the low end - already received a bolus of iv fluid in the ER - continue iv fluids overnight for rehydration. GI Proph: protonix. VTE: lovenox Code status: Full code. - Problems/Diagnosis (1) Pneumonia Problem: Acute Qualifiers: Pneumonia type: due to unspecified organism Laterality: bilateral Lung location: unspecified part of lung Qualified Code(s): J18.9 - Pneumonia, unspecified organism (2) Bipolar 1 disorder Problem: Chronic (3) Elevated liver enzymes Problem: Chronic (4) Mental retardation Problem: Chronic (5) Seizure Problem: Chronic (6) Hypokalemia Problem: Acute
[2017-07-13] MEDS: LORATADINE 10 MG TABLET PO SCH (08:23)
[2017-07-13] MEDS: hydrOXYzine HCL 25 MG TABLET PO SCH ×3 (08:23→17:03)
[2017-07-13] MEDS: QUEtiapine FUMARATE 100 MG TABLET PO SCH (08:24)
[2017-07-13] MEDS: SACCHAROMYCES BOULARDII 250 MG CAPSULE PO SCH ×2 (08:24→21:31)
[2017-07-13] MEDS: MEMANTINE HCL 10 MG TABLET PO SCH ×2 (08:24→21:31)
[2017-07-13] MEDS: FLUoxetine HCL 20 MG CAPSULE PO SCH (08:24)
[2017-07-13] MEDS: OLANZapine 5 MG TABLET PO SCH (08:24)
[2017-07-13] MEDS: levETIRAcetam 500 MG TABLET PO SCH ×2 (08:24→21:31)
[2017-07-13] MEDS: TOLTERODINE TARTRATE 4 MG CAPSULE PO SCH (08:24)
[2017-07-13] MEDS: CHLORHEXIDINE GLUCONATE 480 ML BTL MM SCH ×2 (08:25→21:32)
[2017-07-13] MEDS: OFLOXACIN 50 DROP BTL OT SCH ×2 (08:25→21:32)
[2017-07-13] MEDS: POLYETHYLENE GLYCOL 3350 119 GM BTL PO SCH (08:26)
[2017-07-13] MEDS ORDERED: POTASSIUM CHLORIDE 20 MEQ TABLET.SA ONE (08:28)
[2017-07-13] MEDS: clonazePAM 1 MG TABLET PO SCH ×2 (08:29→21:30)
[2017-07-13] MEDS: DOCUSATE SODIUM 100 MG CAPSULE PO SCH ×2 (08:29→21:31)
[2017-07-13] MEDS: NORMAL SALINE 1,000 ML IV PRN (17:02)
[2017-07-13] MEDS: lamoTRIgine 100 MG TABLET PO SCH (21:20)
[2017-07-13] MEDS: traZODone HCL 150 MG TABLET PO SCH (21:31)
[2017-07-13] MEDS: CLINDAMYCIN HCL 150 MG CAPSULE PO SCH (21:31)
[2017-07-13] MEDS: PREVIDENT DT SCH (22:04)
[2017-07-14] MEDS: NORMAL SALINE 1,000 ML IV PRN ×3 (01:22→17:02)
[2017-07-14 06:21] LABS: Albumin * 2.1 gm/dl (3.4-5.0); Anion Gap 7.9 mmol/L (6.8-13.8); BUN/Creatinine Ratio 9.5 (9.0-21.6); Bilirubin, Total 0.2 mg/dL (0.0-1.1); Ca. Corrected For Albumin 9.7 mg/dL (8.4-10.2); Calcium * 8.5 mg/dL (7.9-10.9); Carbon Dioxide 31.5 mmol/L (24-32.6); Potassium 3.4 mmol/L (3.4-4.6); Total Protein 6.2 gm/dL (6.2-8.2)
[2017-07-14] MEDS: ENOXAPARIN SODIUM 40 MG/0.4 ML SYRG SC SCH (06:44)
[2017-07-14] MEDS: PANTOPRAZOLE SODIUM 40 MG TABLET.EC PO SCH (06:45)
--- NOTE | 2017-07-14 06:53 | PN ---
Subjective - Date and Time Seen Date: 07/14/17 Time: 06:47 Subjective Narrative: patient seen today sitting up in chair with a non productive cough. pt stated she is unable to bring mucus out. No fever, chills and pt requesting to go home because she is feeling better. Objective - Review of Systems Generalized/Overall Review: Reports: No Symptoms Reported EENTM: Reports: No Symptoms Reported Respiratory: Reports: Cough Cardiac: Reports: No Symptoms Reported Abdominal: Reports: No Symptoms Reported Genitourinary Symptoms: Reports: No Symptoms Reported Musculoskeletal Complaints: Reports: No Symptoms Reported Neurological: Reports: No Symptoms Reported Skin: Reports: No Symptoms Reported Endocrine: Reports: No Symptoms Reported - Vitals Vitals: Last Vital Signs Temp 36.6 C 07/14/17 02:38 Pulse 71 07/14/17 02:38 Resp 18 07/14/17 02:38 BP 120/71 07/14/17 02:38 Pulse Ox 92 07/14/17 02:38 - Abnormal Lab Findings Abnormal Lab Findings: Abnormal Lab Results 07/14/17 Range/Units 05:30 Sodium 145 H (132-142) mmol/L Plasma Sodium 145 H (130-142) mmol/L Chloride 109 H (97-106) mmol/L Est GFR (Non-Af Amer) 167 H (60-130) mL/min ALT 77 H (19-67) U/L Alkaline Phosphatase 202 H (50-170) U/L Albumin 2.1 L (3.4-5.0) gm/dl - Exam Constitutional: Present: Alert, Cooperative, No distress, Middle aged, Thin and frail ENT Exam: Present: hearing grossly normal Neck: Present: full range of motion Respiratory: Present: chest non-tender, decreased breath sounds, rales, rhonchi Cardiovascular/Chest: Present: normal peripheral pulses, regular rate, rhythm, no chest tenderness, no edema Abdomen: Present: Normal bowel sounds, soft, nontender /Rectal: Present: Exam deferred Extremity: Present: normal range of motion Skin Exam: Present: normal color, warm/dry Neurologic: Present: alert, motor weakness, other - mental retardation Appearance: Present: neat, impaired insight Eye contact: Present: good eye contact Thoughts: Present: no apparent hallucination Assessment/Plan Plan Narrative: Pneumonia - chest xray c/w bilat RLL and LLL pneumonia (R>L) - given history of MR and history of aspiration, must be assumed that her pneumonia could potentially be aspiration in nature. - 07/13/17 Zosyn was D/C continue with Cleocin 300 mg PO BID , anticipating discharge home on Sunday - aspiration precautions while admitted. - oral care - Give Mucinex 600mg BID - encourage use of I/S and deep breath and cough, pt with mental retardation and unable to follow instructions at time need supportive care and re- enforcing of instructions. MR - provide safe enviroment for pt - bed alarms, etc. - helmet when pt is up. Elevated liver enzymes - chronic in nature. Chronic Seizures: no activity - continue home medications. Dehydration- resolved - patient has poor oral intake since becoming ill - blood pressure also running on the low end - already received a bolus of iv fluid in the ER - Decreased rate of IVF Hypokalemia- resolved supplemented monitor CMP GI Proph: protonix. VTE: lovenox Code status: Full code. Time 20 minutes and case discussed with Dr Hamilton - Problems/Diagnosis (1) Pneumonia Problem: Acute Qualifiers: Pneumonia type: due to unspecified organism Laterality: bilateral Lung location: unspecified part of lung Qualified Code(s): J18.9 - Pneumonia, unspecified organism (2) Bipolar 1 disorder Problem: Chronic (3) Elevated liver enzymes Problem: Chronic (4) Mental retardation Problem: Chronic (5) Seizure Problem: Chronic (6) Hypokalemia Problem: Acute
[2017-07-14] MEDS: hydrOXYzine HCL 25 MG TABLET PO SCH ×3 (08:44→16:56)
[2017-07-14] MEDS: LORATADINE 10 MG TABLET PO SCH (08:45)
[2017-07-14] MEDS: DOCUSATE SODIUM 100 MG CAPSULE PO SCH ×2 (08:46→21:31)
[2017-07-14] MEDS: TOLTERODINE TARTRATE 4 MG CAPSULE PO SCH (08:46)
[2017-07-14] MEDS: CLINDAMYCIN HCL 150 MG CAPSULE PO SCH ×2 (08:46→21:31)
[2017-07-14] MEDS: SACCHAROMYCES BOULARDII 250 MG CAPSULE PO SCH ×2 (08:47→21:32)
[2017-07-14] MEDS: OFLOXACIN 50 DROP BTL OT SCH ×2 (08:47→21:32)
[2017-07-14] MEDS: POLYETHYLENE GLYCOL 3350 119 GM BTL PO SCH (08:48)
[2017-07-14] MEDS: levETIRAcetam 500 MG TABLET PO SCH ×2 (08:48→21:33)
[2017-07-14] MEDS: MEMANTINE HCL 10 MG TABLET PO SCH ×2 (08:49→21:35)
[2017-07-14] MEDS: QUEtiapine FUMARATE 100 MG TABLET PO SCH (08:50)
[2017-07-14] MEDS: FLUoxetine HCL 20 MG CAPSULE PO SCH (08:50)
[2017-07-14] MEDS: OLANZapine 5 MG TABLET PO SCH (08:50)
[2017-07-14] MEDS: CHLORHEXIDINE GLUCONATE 480 ML BTL MM SCH ×2 (08:51→21:37)
[2017-07-14] MEDS: clonazePAM 1 MG TABLET PO SCH ×2 (08:53→21:33)
[2017-07-14] MEDS: traZODone HCL 150 MG TABLET PO SCH (21:32)
[2017-07-14] MEDS: lamoTRIgine 100 MG TABLET PO SCH (21:33)
[2017-07-14] MEDS: PREVIDENT DT SCH (21:58)
[2017-07-15] MEDS: NORMAL SALINE 1,000 ML IV PRN (01:43)
[2017-07-15 05:45] LABS: Hematocrit 32.2 % (37.0-47.0); Hemoglobin 10.5 gm/dL (12.5-16.0); Mean Cell Volume 89.2 fl (78-100); Mean Corpuscular Hemoglobin 29.1 pg (27-31); Mean Corpuscular Hgb Conc 32.6 g/dl (32-36); Platelet Count 371 K/mm3 (150-450); Red Blood Count 3.61 M/mm3 (4.2-5.4); Red Cell Distribution Width 13.5 % (11.5-14.0); White Blood Count 5.6 K/mm3 (4.0-10.5)
[2017-07-15 05:48] LABS: Total Cells Counted 100
[2017-07-15 05:59] LABS: Anion Gap 9.1 mmol/L (6.8-13.8); Bilirubin, Total 0.3 mg/dL (0.0-1.1); Ca. Corrected For Albumin 9.5 mg/dL (8.4-10.2); Calcium * 8.2 mg/dL (7.9-10.9); Carbon Dioxide 33.2 mmol/L (24-32.6); Potassium 3.3 mmol/L (3.4-4.6); Total Protein 6.1 gm/dL (6.2-8.2)
[2017-07-15 06:08] LABS: Atypical (Reactive) Lymph 4 % (0-2); Basophil 1 % (0-1); Eosinophil 3 % (0-3); Lymphocyte 31 % (20-51); Monocyte 4 % (0-9); Neutrophil 57 % (42-75); Neutrophil # 3.2 K/mm3 (1.3-6.0)
[2017-07-15 06:10] LABS: Platelet Estimate Normal (NORMAL)
[2017-07-15 06:11] LABS: Hypochromia 1+
[2017-07-15] MEDS ORDERED: POTASSIUM CHLORIDE 20 MEQ TABLET.SA PO ONE (06:40)
--- NOTE | 2017-07-15 07:12 | PN ---
Subjective - Date and Time Seen Date: 07/15/17 Time: 07:08 Subjective Narrative: patient seen today stated she was feeling better and want to go home. she denies fever, chills and stated she have a cough. Objective - Review of Systems Generalized/Overall Review: Reports: No Symptoms Reported EENTM: Reports: No Symptoms Reported Respiratory: Reports: Cough Cardiac: Reports: No Symptoms Reported Abdominal: Reports: No Symptoms Reported Genitourinary Symptoms: Reports: No Symptoms Reported Musculoskeletal Complaints: Reports: No Symptoms Reported Neurological: Reports: No Symptoms Reported Skin: Reports: No Symptoms Reported - Vitals Vitals: Last Vital Signs Temp 36.6 C 07/15/17 04:00 Pulse 87 07/15/17 04:00 Resp 18 07/15/17 04:00 BP 121/64 07/15/17 04:00 Pulse Ox 90 07/15/17 04:00 - Abnormal Lab Findings Abnormal Lab Findings: Abnormal Lab Results 07/15/17 07/15/17 Range/Units 05:30 05:30 RBC 3.61 L (4.2-5.4) M/mm3 Hgb 10.5 L (12.5-16.0) gm/dL Hct 32.2 L (37.0-47.0) % Atypic/Reactive Lymphs 4 H (0-2) % Sodium 144 H (132-142) mmol/L Plasma Sodium 144 H (130-142) mmol/L Potassium 3.3 L (3.4-4.6) mmol/L Carbon Dioxide 33.2 H (24-32.6) mmol/L Est GFR (Non-Af Amer) 163 H (60-130) mL/min BUN/Creatinine Ratio 7.0 L (9.0-21.6) ALT 68 H (19-67) U/L Alkaline Phosphatase 222 H (50-170) U/L Total Protein 6.1 L (6.2-8.2) gm/dL Albumin 2.0 L (3.4-5.0) gm/dl - Exam Constitutional: Present: Oriented x3, Cooperative, No distress ENT Exam: Present: hearing grossly normal Neck: Present: full range of motion Respiratory: Present: chest non-tender, normal breath sounds, no respiratory distress, decreased breath sounds, rhonchi Cardiovascular/Chest: Present: normal peripheral pulses, regular rate, rhythm, no chest tenderness, no edema Abdomen: Present: Normal bowel sounds, soft, nontender, nondistended /Rectal: Present: Exam deferred Extremity: Present: normal range of motion, non-tender, normal inspection, no calf tenderness Skin Exam: Present: normal color, warm/dry Neurologic: Present: alert, oriented x 3 Appearance: Present: appropriate appearance Eye contact: Present: cooperative, good eye contact Thoughts: Present: no apparent hallucination Assessment/Plan Plan Narrative: Hypokalemia- possible due to IVF - supplemented and decreased desi of IVF - Monitor cmp Pneumonia - chest xray c/w bilat RLL and LLL pneumonia (R>L) - given history of MR and history of aspiration, must be assumed that her pneumonia could potentially be aspiration in nature. - 07/13/17 Zosyn - continue with Cleocin 300 mg PO BID , anticipating discharge home on Sunday - aspiration precautions while admitted. - oral care - Give Mucinex 600mg BID - encourage use of I/S and deep breath and cough, pt with mental retardation and unable to follow instructions at time need supportive care and re-enforcing of instructions. MR - provide safe enviroment for pt - bed alarms, etc. - helmet when pt is up. Elevated liver enzymes - chronic in nature. - continue to monitor Chronic Seizures: no activity - continue home medications. - pad side rails Dehydration- resolved - patient has poor oral intake since becoming ill - blood pressure also running on the low end - already received a bolus of iv fluid in the ER - Decreased rate of IVF Hypokalemia- resolved supplemented monitor CMP GI Proph: protonix. VTE: lovenox Code status: Full code. Time 15 minutes and case discussed with Dr Hamilton - Problems/Diagnosis (1) Pneumonia Problem: Acute Qualifiers: Pneumonia type: due to unspecified organism Laterality: bilateral Lung location: unspecified part of lung Qualified Code(s): J18.9 - Pneumonia, unspecified organism (2) Bipolar 1 disorder Problem: Chronic (3) Elevated liver enzymes Problem: Chronic (4) Mental retardation Problem: Chronic (5) Seizure Problem: Chronic (6) Hypokalemia Problem: Acute
[2017-07-15] MEDS: POTASSIUM CHLORIDE 20 MEQ in NORMAL SALINE 1,000 ML IV SCH ×2 (08:39→23:02)
[2017-07-15] MEDS: FLUoxetine HCL 20 MG CAPSULE PO SCH (08:44)
[2017-07-15] MEDS: ENOXAPARIN SODIUM 40 MG/0.4 ML SYRG SC SCH (08:44)
[2017-07-15] MEDS: levETIRAcetam 500 MG TABLET PO SCH ×2 (08:44→20:48)
[2017-07-15] MEDS: DOCUSATE SODIUM 100 MG CAPSULE PO SCH ×2 (08:44→20:47)
[2017-07-15] MEDS: SACCHAROMYCES BOULARDII 250 MG CAPSULE PO SCH ×2 (08:45→20:47)
[2017-07-15] MEDS: QUEtiapine FUMARATE 100 MG TABLET PO SCH (08:45)
[2017-07-15] MEDS: PANTOPRAZOLE SODIUM 40 MG TABLET.EC PO SCH (08:45)
[2017-07-15] MEDS: CLINDAMYCIN HCL 150 MG CAPSULE PO SCH ×2 (08:45→20:46)
[2017-07-15] MEDS: OLANZapine 5 MG TABLET PO SCH (08:45)
[2017-07-15] MEDS: MEMANTINE HCL 10 MG TABLET PO SCH ×2 (08:45→20:47)
[2017-07-15] MEDS: hydrOXYzine HCL 25 MG TABLET PO SCH ×3 (08:46→17:56)
[2017-07-15] MEDS: LORATADINE 10 MG TABLET PO SCH (08:46)
[2017-07-15] MEDS: OFLOXACIN 50 DROP BTL OT SCH ×2 (08:47→20:49)
[2017-07-15] MEDS: TOLTERODINE TARTRATE 4 MG CAPSULE PO SCH (08:47)
[2017-07-15] MEDS: POLYETHYLENE GLYCOL 3350 119 GM BTL PO SCH (08:48)
[2017-07-15] MEDS: CHLORHEXIDINE GLUCONATE 480 ML BTL MM SCH ×2 (08:48→20:49)
[2017-07-15] MEDS: clonazePAM 1 MG TABLET PO SCH ×2 (09:02→20:46)
[2017-07-15] MEDS ORDERED: POTASSIUM CHLORIDE 40 MEQ/15 ML BTL PO ONE (09:59)
[2017-07-15] MEDS: lamoTRIgine 100 MG TABLET PO SCH (20:47)
[2017-07-15] MEDS: traZODone HCL 150 MG TABLET PO SCH (20:48)
[2017-07-15] MEDS: PREVIDENT DT SCH (20:49)
[2017-07-16 05:47] LABS: Anion Gap 9.6 mmol/L (6.8-13.8); BUN/Creatinine Ratio 9.3 (9.0-21.6); Bilirubin, Total 0.2 mg/dL (0.0-1.1); Ca. Corrected For Albumin 9.6 mg/dL (8.4-10.2); Calcium * 8.3 mg/dL (7.9-10.9); Carbon Dioxide 31.1 mmol/L (24-32.6); Potassium 3.7 mmol/L (3.4-4.6); Total Protein 6.1 gm/dL (6.2-8.2)
[2017-07-16] MEDS: PANTOPRAZOLE SODIUM 40 MG TABLET.EC PO SCH (06:18)
[2017-07-16] MEDS: ENOXAPARIN SODIUM 40 MG/0.4 ML SYRG SC SCH (06:18)
[2017-07-16] MEDS: hydrOXYzine HCL 25 MG TABLET PO SCH ×3 (08:19→16:51)
[2017-07-16] MEDS: CLINDAMYCIN HCL 150 MG CAPSULE PO SCH ×2 (08:19→22:11)
[2017-07-16] MEDS: SACCHAROMYCES BOULARDII 250 MG CAPSULE PO SCH ×2 (08:19→22:12)
[2017-07-16] MEDS: DOCUSATE SODIUM 100 MG CAPSULE PO SCH ×2 (08:20→22:10)
[2017-07-16] MEDS: LORATADINE 10 MG TABLET PO SCH (08:20)
[2017-07-16] MEDS: levETIRAcetam 500 MG TABLET PO SCH ×2 (08:20→22:10)
[2017-07-16] MEDS: FLUoxetine HCL 20 MG CAPSULE PO SCH (08:20)
[2017-07-16] MEDS: TOLTERODINE TARTRATE 4 MG CAPSULE PO SCH (08:20)
[2017-07-16] MEDS: POLYETHYLENE GLYCOL 3350 119 GM BTL PO SCH (08:20)
[2017-07-16] MEDS: QUEtiapine FUMARATE 100 MG TABLET PO SCH (08:21)
[2017-07-16] MEDS: OLANZapine 5 MG TABLET PO SCH (08:21)
[2017-07-16] MEDS: MEMANTINE HCL 10 MG TABLET PO SCH ×2 (08:21→22:11)
[2017-07-16] MEDS: CHLORHEXIDINE GLUCONATE 480 ML BTL MM SCH ×2 (08:22→22:12)
[2017-07-16] MEDS: clonazePAM 1 MG TABLET PO SCH ×2 (08:25→22:10)
--- NOTE | 2017-07-16 11:45 | PN ---
Subjective - Date and Time Seen Date: 07/16/17 Time: 07:30 Subjective Narrative: Patient seen and examined at bedside. She was resting comfortably in the bedside chair at the time of my exam. No acute issues overnight. Objective Objective Narrative: Unable to obtain secondary to the patient's underlying MR - Vitals Vitals: Last Vital Signs Temp 36.4 C L 07/16/17 10:35 Pulse 68 07/16/17 10:35 Resp 16 07/16/17 10:35 BP 136/74 07/16/17 10:35 Pulse Ox 93 07/16/17 10:35 - Abnormal Lab Findings Abnormal Lab Findings: Abnormal Lab Results 07/16/17 Range/Units 05:10 Est GFR (Non-Af Amer) 163 H (60-130) mL/min Alkaline Phosphatase 235 H (50-170) U/L Total Protein 6.1 L (6.2-8.2) gm/dL Albumin 2.0 L (3.4-5.0) gm/dl - Exam Constitutional: Present: Alert, No distress, Thin and frail Respiratory: Present: no respiratory distress, no accessory muscle use, other - Oral secretions present with gurgling sounds in throat secondary to the patient' s decreased ability to handle her secretions. These sounds are referred into her lungs when auscultating but are not truly coming from her lungs but rather her oropharynx. Cardiovascular/Chest: Present: regular rate, rhythm Abdomen: Present: soft, nontender, nondistended Skin Exam: Present: normal color, warm/dry Neurologic: Present: alert, other - Baseline MR Assessment/Plan Plan Narrative: Continue PO clindamycin with plans to continue for a total 14 day course for treatment of her aspiration pneumonia. The patient will take her final two doses on 07/25/2017. Patient will need a follow-up CXR in approximately 4 weeks to monitor for resolution. Continue PT and [employer] evaluation and treatment. Patient scheduled for a video swallow study tomorrow (07/17/2017). Tentative plan is for the patient to be discharged tomorrow following her video swallow and once we have diet recommendations from [employer]. - Problems/Diagnosis (1) Aspiration pneumonia Problem: Acute Qualifiers: Laterality: right Lung location: unspecified part of lung (2) Hypokalemia Problem: Resolved (3) Dysphagia Problem: Chronic (4) Mental retardation Problem: Chronic (5) Elevated liver enzymes Problem: Chronic
[2017-07-16] MEDS: POTASSIUM CHLORIDE 20 MEQ in NORMAL SALINE 1,000 ML IV SCH (13:29)
[2017-07-16] MEDS: lamoTRIgine 100 MG TABLET PO SCH (22:09)
[2017-07-16] MEDS: traZODone HCL 150 MG TABLET PO SCH (22:10)
[2017-07-16] MEDS: PREVIDENT DT SCH (22:13)
[2017-07-17] MEDS: POTASSIUM CHLORIDE 20 MEQ in NORMAL SALINE 1,000 ML IV SCH ×2 (05:01→16:43)
[2017-07-17] MEDS: PANTOPRAZOLE SODIUM 40 MG TABLET.EC PO SCH (06:52)
[2017-07-17] MEDS: ENOXAPARIN SODIUM 40 MG/0.4 ML SYRG SC SCH (06:52)
--- NOTE | 2017-07-17 08:04 | PN ---
Progess Note - Interim Narrative: 07/17/17 07:59 For Video swallowing study this morning and possible discharge to [place] for strengthening before going home to her [facility] sheltered housing.
[2017-07-17] MEDS: CHLORHEXIDINE GLUCONATE 480 ML BTL MM SCH ×2 (09:32→21:17)
[2017-07-17] MEDS: MEMANTINE HCL 10 MG TABLET PO SCH ×2 (10:02→21:17)
[2017-07-17] MEDS: FLUoxetine HCL 20 MG CAPSULE PO SCH (10:02)
[2017-07-17] MEDS: TOLTERODINE TARTRATE 4 MG CAPSULE PO SCH (10:02)
[2017-07-17] MEDS: LORATADINE 10 MG TABLET PO SCH (10:02)
[2017-07-17] MEDS: CLINDAMYCIN HCL 150 MG CAPSULE PO SCH ×2 (10:02→21:13)
[2017-07-17] MEDS: hydrOXYzine HCL 25 MG TABLET PO SCH ×3 (10:02→16:48)
[2017-07-17] MEDS: levETIRAcetam 500 MG TABLET PO SCH ×2 (10:02→21:15)
[2017-07-17] MEDS: DOCUSATE SODIUM 100 MG CAPSULE PO SCH ×2 (10:03→21:15)
[2017-07-17] MEDS: QUEtiapine FUMARATE 100 MG TABLET PO SCH (10:03)
[2017-07-17] MEDS: SACCHAROMYCES BOULARDII 250 MG CAPSULE PO SCH ×2 (10:03→21:15)
[2017-07-17] MEDS: POLYETHYLENE GLYCOL 3350 119 GM BTL PO SCH (10:03)
[2017-07-17] MEDS: OLANZapine 5 MG TABLET PO SCH (10:04)
[2017-07-17] MEDS: clonazePAM 1 MG TABLET PO SCH ×2 (10:08→21:16)
--- NOTE | 2017-07-17 16:11 | PN ---
Subjective - Date and Time Seen Date: 07/17/17 Time: 16:07 Subjective Narrative: Had Video swallowing study this morning . Awaiting NH placement for strengthening before going home to her [facility] sheltered housing. Objective - Review of Systems Generalized/Overall Review: Reports: No Symptoms Reported EENTM: Reports: No Symptoms Reported Respiratory: Reports: No Symptoms Reported Cardiac: Reports: No Symptoms Reported Abdominal: Reports: No Symptoms Reported Genitourinary Symptoms: Reports: No Symptoms Reported Musculoskeletal Complaints: Reports: No Symptoms Reported Neurological: Reports: No Symptoms Reported Skin: Reports: No Symptoms Reported Endocrine: Reports: No Symptoms Reported Misc: All systems neg except as marked - ROS is unreliable due to her mental status. - Vitals Vitals: Last Vital Signs Temp 36.4 C L 07/17/17 14:39 Pulse 70 07/17/17 14:39 Resp 18 07/17/17 14:39 BP 125/68 07/17/17 14:39 Pulse Ox 93 07/17/17 14:39 - Exam Constitutional: Present: Alert - AAO x 1, Cooperative ENT Exam: Present: hearing grossly normal Respiratory: Present: decreased breath sounds, rales, No rales, No wheezing Cardiovascular/Chest: Present: regular rate, rhythm, no JVD, no murmur Abdomen: Present: Normal bowel sounds, soft, nontender, nondistended Extremity: Present: no pedal edema, no calf tenderness Assessment/Plan - Problems/Diagnosis (1) Pneumonia Problem: Acute Qualifiers: Pneumonia type: due to unspecified organism Laterality: bilateral Lung location: unspecified part of lung Qualified Code(s): J18.9 - Pneumonia, unspecified organism Narrative: no aspiration on swallowing but positive GERD. on Clindamycin (2) Mental retardation Problem: Chronic (3) Seizure Problem: Chronic (4) GERD (gastroesophageal reflux disease) Problem: Acute Narrative: on PPI
[2017-07-17] MEDS: traZODone HCL 150 MG TABLET PO SCH (21:15)
[2017-07-17] MEDS: lamoTRIgine 100 MG TABLET PO SCH (21:16)
[2017-07-17] MEDS: PREVIDENT DT SCH (21:18)
[2017-07-18] MEDS: ENOXAPARIN SODIUM 40 MG/0.4 ML SYRG SC SCH (07:44)
[2017-07-18] MEDS: PANTOPRAZOLE SODIUM 40 MG TABLET.EC PO SCH (07:44)
--- NOTE | 2017-07-18 09:05 | PN ---
Progess Note - Interim Narrative: 07/18/17 09:04 Not eating as much with thickened liquids. Still awaiting NH placement.
[2017-07-18 09:12] LABS: Hematocrit 35.9 % (37.0-47.0); Hemoglobin 11.9 gm/dL (12.5-16.0); Mean Cell Volume 88.4 fl (78-100); Mean Corpuscular Hemoglobin 29.3 pg (27-31); Mean Corpuscular Hgb Conc 33.1 g/dl (32-36); Mean Platelet Volume 8.7 fl (6.0-9.5); Neutrophil # 5.4 K/mm3 (1.3-6.0); Neutrophil % 71.6 % (42-75.0); Platelet Count 477 K/mm3 (150-450); Red Blood Count 4.06 M/mm3 (4.2-5.4); Red Cell Distribution Width 13.7 % (11.5-14.0); White Blood Count 7.5 K/mm3 (4.0-10.5)
[2017-07-18 09:31] LABS: BUN/Creatinine Ratio 3.8 (9.0-21.6); Carbon Dioxide 29.6 mmol/L (24-32.6); Estimated Creat Clear 75.4; Potassium 3.6 mmol/L (3.4-4.6)
[2017-07-18] MEDS: FLUoxetine HCL 20 MG CAPSULE PO SCH (09:39)
[2017-07-18] MEDS: CLINDAMYCIN HCL 150 MG CAPSULE PO SCH ×2 (09:39→20:47)
[2017-07-18] MEDS: OLANZapine 5 MG TABLET PO SCH (09:39)
[2017-07-18] MEDS: DOCUSATE SODIUM 100 MG CAPSULE PO SCH ×2 (09:40→20:48)
[2017-07-18] MEDS: levETIRAcetam 500 MG TABLET PO SCH ×2 (09:40→20:51)
[2017-07-18] MEDS: hydrOXYzine HCL 25 MG TABLET PO SCH ×3 (09:40→17:39)
[2017-07-18] MEDS: LORATADINE 10 MG TABLET PO SCH (09:40)
[2017-07-18] MEDS: QUEtiapine FUMARATE 100 MG TABLET PO SCH (09:41)
[2017-07-18] MEDS: TOLTERODINE TARTRATE 4 MG CAPSULE PO SCH (09:41)
[2017-07-18] MEDS: POLYETHYLENE GLYCOL 3350 119 GM BTL PO SCH (09:41)
[2017-07-18] MEDS: MEMANTINE HCL 10 MG TABLET PO SCH ×2 (09:41→20:52)
[2017-07-18] MEDS: SACCHAROMYCES BOULARDII 250 MG CAPSULE PO SCH ×2 (09:41→20:49)
[2017-07-18] MEDS: CHLORHEXIDINE GLUCONATE 480 ML BTL MM SCH ×2 (09:42→20:53)
[2017-07-18] MEDS: clonazePAM 1 MG TABLET PO SCH ×2 (09:46→20:56)
[2017-07-18] MEDS ORDERED: NEOMYCIN/BACITRACIN/POLYMYXINB 15 APPL TUBE TP PRN (16:06)
--- NOTE | 2017-07-18 16:10 | PN ---
Subjective - Date and Time Seen Date: 07/18/17 Time: 16:07 Subjective Narrative: patient is still awaiting NH placement. Objective - Review of Systems Generalized/Overall Review: Reports: No Symptoms Reported EENTM: Reports: No Symptoms Reported Respiratory: Reports: No Symptoms Reported Cardiac: Reports: No Symptoms Reported Abdominal: Reports: No Symptoms Reported Genitourinary Symptoms: Reports: No Symptoms Reported Musculoskeletal Complaints: Reports: No Symptoms Reported Neurological: Reports: No Symptoms Reported Skin: Reports: No Symptoms Reported Endocrine: Reports: No Symptoms Reported Misc: All systems neg except as marked - ROS is unreliable due to her mental retardation - Vitals Vitals: Last Vital Signs Temp 36.7 C 07/18/17 14:55 Pulse 79 07/18/17 14:55 Resp 18 07/18/17 14:55 BP 96/50 07/18/17 14:55 Pulse Ox 93 07/18/17 14:55 - Abnormal Lab Findings Abnormal Lab Findings: Abnormal Lab Results 07/18/17 07/18/17 Range/Units 09:05 09:05 RBC 4.06 L (4.2-5.4) M/mm3 Hgb 11.9 L (12.5-16.0) gm/dL Hct 35.9 L (37.0-47.0) % Plt Count 477 H (150-450) K/mm3 Immature Gran % (Auto) 0.90 H (0.001-0.429) % Immature Gran # (Auto) 0.07 H (0.000-0.0310) K/mm3 Lymphocytes % 17.5 L (20-51) % Lymphocytes # 1.3 L (1.5-3.5) k/mm3 BUN 2 L (3-23) mg/dL Est GFR (Non-Af Amer) 131 H (60-130) mL/min BUN/Creatinine Ratio 3.8 L (9.0-21.6) Random Glucose 135 H D (70-110) mg/dL - Exam Constitutional: Present: Alert - AAO x 1, Thin and frail ENT Exam: Present: hearing grossly normal Neck: Present: supple Respiratory: Present: decreased breath sounds, No rales, No wheezing Cardiovascular/Chest: Present: regular rate, rhythm, no JVD, no murmur Abdomen: Present: Normal bowel sounds, soft, nontender, nondistended Extremity: Present: no pedal edema, no calf tenderness Assessment/Plan - Problems/Diagnosis (1) Pneumonia Problem: Acute Qualifiers: Pneumonia type: due to unspecified organism Laterality: bilateral Lung location: unspecified part of lung Qualified Code(s): J18.9 - Pneumonia, unspecified organism Narrative: on clindamycin (2) Mental retardation Problem: Chronic (3) Seizure Problem: Chronic (4) GERD (gastroesophageal reflux disease) Problem: Acute Narrative: on PPI
[2017-07-18] MEDS ORDERED: NEOMYCIN/BACITRACIN/POLYMYXINB 30 APPL TUBE TP PRN (16:15)
[2017-07-18] MEDS: traZODone HCL 150 MG TABLET PO SCH (20:50)
[2017-07-18] MEDS: lamoTRIgine 100 MG TABLET PO SCH (20:51)
[2017-07-18] MEDS: PREVIDENT DT SCH (20:56)
[2017-07-19] MEDS: PANTOPRAZOLE SODIUM 40 MG TABLET.EC PO SCH (07:17)
[2017-07-19] MEDS: ENOXAPARIN SODIUM 40 MG/0.4 ML SYRG SC SCH (07:17)
--- NOTE | 2017-07-19 08:06 | PN ---
Progess Note - Interim Narrative: 07/19/17 08:05 Patient is stable. Awaiting NH placement.
[2017-07-19] MEDS: clonazePAM 1 MG TABLET PO SCH ×2 (10:26→22:01)
[2017-07-19] MEDS: POLYETHYLENE GLYCOL 3350 119 GM BTL PO SCH (10:26)
[2017-07-19] MEDS: QUEtiapine FUMARATE 100 MG TABLET PO SCH (10:27)
[2017-07-19] MEDS: FLUoxetine HCL 20 MG CAPSULE PO SCH (10:27)
[2017-07-19] MEDS: levETIRAcetam 500 MG TABLET PO SCH ×2 (10:27→22:01)
[2017-07-19] MEDS: DOCUSATE SODIUM 100 MG CAPSULE PO SCH ×2 (10:27→22:01)
[2017-07-19] MEDS: hydrOXYzine HCL 25 MG TABLET PO SCH ×3 (10:27→17:30)
[2017-07-19] MEDS: OLANZapine 5 MG TABLET PO SCH (10:28)
[2017-07-19] MEDS: SACCHAROMYCES BOULARDII 250 MG CAPSULE PO SCH ×2 (10:28→22:01)
[2017-07-19] MEDS: TOLTERODINE TARTRATE 4 MG CAPSULE PO SCH (10:28)
[2017-07-19] MEDS: CLINDAMYCIN HCL 150 MG CAPSULE PO SCH ×2 (10:28→22:01)
[2017-07-19] MEDS: LORATADINE 10 MG TABLET PO SCH (10:28)
[2017-07-19] MEDS: MEMANTINE HCL 10 MG TABLET PO SCH ×2 (10:28→22:01)
[2017-07-19] MEDS: CHLORHEXIDINE GLUCONATE 480 ML BTL MM SCH ×2 (10:34→22:01)
[2017-07-19] MEDS: POTASSIUM CHLORIDE 20 MEQ in NORMAL SALINE 1,000 ML IV SCH ×2 (12:12→12:13)
--- NOTE | 2017-07-19 14:45 | PN ---
Subjective - Date and Time Seen Date: 07/19/17 Time: 14:42 Subjective Narrative: Stable. Awaiting NH placement. Afebrile. Objective - Review of Systems Generalized/Overall Review: Reports: No Symptoms Reported EENTM: Reports: No Symptoms Reported Respiratory: Reports: No Symptoms Reported Cardiac: Reports: No Symptoms Reported Abdominal: Reports: No Symptoms Reported Genitourinary Symptoms: Reports: No Symptoms Reported Musculoskeletal Complaints: Reports: No Symptoms Reported Neurological: Reports: No Symptoms Reported Skin: Reports: No Symptoms Reported Endocrine: Reports: No Symptoms Reported Misc: All systems neg except as marked - ROS is unrelieable due to her mental status. - Vitals Vitals: Last Vital Signs Temp 36.7 C 07/19/17 10:09 Pulse 79 07/19/17 10:09 Resp 18 07/19/17 10:09 BP 95/50 07/19/17 10:09 Pulse Ox 91 07/19/17 10:09 - Exam Constitutional: Present: Alert - AAO x 1, Cooperative ENT Exam: Present: hearing grossly normal Neck: Present: supple Respiratory: Present: decreased breath sounds, wheezing - ocassional, No rales Cardiovascular/Chest: Present: regular rate, rhythm, no JVD, no murmur Abdomen: Present: Normal bowel sounds, soft, nontender, nondistended Extremity: Present: no pedal edema, no calf tenderness Assessment/Plan - Problems/Diagnosis (1) Pneumonia Problem: Acute Qualifiers: Pneumonia type: due to unspecified organism Laterality: bilateral Lung location: unspecified part of lung Qualified Code(s): J18.9 - Pneumonia, unspecified organism Narrative: day # 10 of Antibiotics (2) Mental retardation Problem: Chronic (3) Seizure Problem: Chronic (4) GERD (gastroesophageal reflux disease) Problem: Acute
[2017-07-19] MEDS: PREVIDENT DT SCH (22:01)
[2017-07-19] MEDS: traZODone HCL 150 MG TABLET PO SCH (22:01)
[2017-07-19] MEDS: lamoTRIgine 100 MG TABLET PO SCH (22:01)
[2017-07-20] MEDS: PANTOPRAZOLE SODIUM 40 MG TABLET.EC PO SCH (07:34)
[2017-07-20] MEDS: ENOXAPARIN SODIUM 40 MG/0.4 ML SYRG SC SCH (07:35)
--- NOTE | 2017-07-20 08:50 | PN ---
Progess Note - Interim Narrative: 07/20/17 08:49 Still waiting for NH placement for more PT/OT. Will d/c her antibiotics.
[2017-07-20] MEDS: TOLTERODINE TARTRATE 4 MG CAPSULE PO SCH (09:23)
[2017-07-20] MEDS: MEMANTINE HCL 10 MG TABLET PO SCH (09:23)
[2017-07-20] MEDS: QUEtiapine FUMARATE 100 MG TABLET PO SCH (09:23)
[2017-07-20] MEDS: DOCUSATE SODIUM 100 MG CAPSULE PO SCH (09:23)
[2017-07-20] MEDS: SACCHAROMYCES BOULARDII 250 MG CAPSULE PO SCH (09:24)
[2017-07-20] MEDS: hydrOXYzine HCL 25 MG TABLET PO SCH ×3 (09:24→17:12)
[2017-07-20] MEDS: OLANZapine 5 MG TABLET PO SCH (09:24)
[2017-07-20] MEDS: FLUoxetine HCL 20 MG CAPSULE PO SCH (09:25)
[2017-07-20] MEDS: LORATADINE 10 MG TABLET PO SCH (09:25)
[2017-07-20] MEDS: CHLORHEXIDINE GLUCONATE 480 ML BTL MM SCH (09:26)
[2017-07-20] MEDS: POLYETHYLENE GLYCOL 3350 119 GM BTL PO SCH (09:27)
[2017-07-20] MEDS: clonazePAM 1 MG TABLET PO SCH (09:38)
[2017-07-20] MEDS: levETIRAcetam 500 MG TABLET PO SCH (09:38)
--- NOTE | 2017-07-20 12:32 | PN ---
Subjective - Date and Time Seen Date: 07/20/17 Time: 12:29 Subjective Narrative: Still waiting for NH placement for more PT/OT. Will d/c her antibiotics. Had 10 days of antibiotics. Objective - Review of Systems Generalized/Overall Review: Reports: No Symptoms Reported EENTM: Reports: No Symptoms Reported Respiratory: Reports: No Symptoms Reported Cardiac: Reports: No Symptoms Reported Abdominal: Reports: No Symptoms Reported Genitourinary Symptoms: Reports: No Symptoms Reported Musculoskeletal Complaints: Reports: No Symptoms Reported Neurological: Reports: No Symptoms Reported Skin: Reports: No Symptoms Reported Endocrine: Reports: No Symptoms Reported Misc: All systems neg except as marked - ROS is unreliable due to her mental status. - Vitals Vitals: Last Vital Signs Temp 36.6 C 07/20/17 11:00 Pulse 78 07/20/17 11:00 Resp 18 07/20/17 11:00 BP 124/62 07/20/17 11:00 Pulse Ox 98 07/20/17 11:00 - Exam Constitutional: Present: Alert - AAO x 1, Cooperative, Thin and frail ENT Exam: Present: hearing grossly normal Respiratory: Present: decreased breath sounds, wheezing - occasional, No rales Cardiovascular/Chest: Present: regular rate, rhythm, no JVD, no murmur Abdomen: Present: Normal bowel sounds, soft, nontender, nondistended Extremity: Present: no pedal edema, no calf tenderness Assessment/Plan - Problems/Diagnosis (1) Pneumonia Problem: Acute Qualifiers: Pneumonia type: due to unspecified organism Laterality: bilateral Lung location: unspecified part of lung Qualified Code(s): J18.9 - Pneumonia, unspecified organism Narrative: had 10 days of antibiotics. awaiting NH placement for PT/OT (2) Mental retardation Problem: Chronic (3) Seizure Problem: Chronic (4) GERD (gastroesophageal reflux disease) Problem: Acute Narrative: on PPI
[2017-07-21] MEDS: CHLORHEXIDINE GLUCONATE 480 ML BTL MM SCH ×3 (01:18→20:59)
[2017-07-21] MEDS: traZODone HCL 150 MG TABLET PO SCH ×2 (01:29→20:57)
[2017-07-21] MEDS: DOCUSATE SODIUM 100 MG CAPSULE PO SCH ×3 (01:29→20:54)
[2017-07-21] MEDS: levETIRAcetam 500 MG TABLET PO SCH ×3 (01:29→20:56)
[2017-07-21] MEDS: SACCHAROMYCES BOULARDII 250 MG CAPSULE PO SCH ×3 (01:29→20:57)
[2017-07-21] MEDS: clonazePAM 1 MG TABLET PO SCH ×3 (01:29→20:59)
[2017-07-21] MEDS: lamoTRIgine 100 MG TABLET PO SCH ×2 (01:30→20:58)
[2017-07-21] MEDS: MEMANTINE HCL 10 MG TABLET PO SCH ×3 (01:30→20:54)
[2017-07-21] MEDS: PREVIDENT DT SCH ×2 (02:01→20:59)
--- NOTE | 2017-07-21 06:43 | PN ---
Subjective - Date and Time Seen Date: 07/21/17 Time: 06:39 Subjective Narrative: Pt examined this am. She is alert and in no distress. No acute events overnight. Objective - Vitals Vitals: Last Vital Signs Temp 36.3 C L 07/21/17 02:33 Pulse 78 07/21/17 02:33 Resp 16 07/21/17 02:33 BP 88/55 07/21/17 02:33 Pulse Ox 95 07/21/17 02:33 - Exam Constitutional: Present: Alert, Cooperative, No distress ENT Exam: Present: normal ENT inspection Neck: Present: non-tender, full range of motion, supple Breasts: Present: Exam deferred Respiratory: Present: lungs clear, No rales, No wheezing Cardiovascular/Chest: Present: normal peripheral pulses, regular rate, rhythm, no chest tenderness Abdomen: Present: Normal bowel sounds, soft, nontender /Rectal: Present: Exam deferred Extremity: Present: normal range of motion, non-tender, normal inspection Skin Exam: Present: warm/dry, no cyanosis Lymphatic: Present: no adenopathy Neurologic: Present: alert, normal mood/affect Appearance: Present: appropriate appearance Eye contact: Present: cooperative, good eye contact, compulsive Thoughts: Present: no apparent hallucination Assessment/Plan - Problems/Diagnosis (1) Pneumonia Problem: Acute Qualifiers: Pneumonia type: due to unspecified organism Laterality: bilateral Lung location: unspecified part of lung Qualified Code(s): J18.9 - Pneumonia, unspecified organism Narrative: Pt completed 10 day course of IV antibiotics. (2) Discharge planning issues Problem: Acute Narrative: Awaiting [facility] placement. (3) GERD (gastroesophageal reflux disease) Problem: Acute (4) Mental retardation Problem: Chronic (5) Seizure Problem: Chronic
[2017-07-21] MEDS: ENOXAPARIN SODIUM 40 MG/0.4 ML SYRG SC SCH (07:15)
[2017-07-21] MEDS: PANTOPRAZOLE SODIUM 40 MG TABLET.EC PO SCH (07:16)
[2017-07-21] MEDS: hydrOXYzine HCL 25 MG TABLET PO SCH ×3 (08:06→16:58)
[2017-07-21] MEDS: TOLTERODINE TARTRATE 4 MG CAPSULE PO SCH (08:08)
[2017-07-21] MEDS: FLUoxetine HCL 20 MG CAPSULE PO SCH (08:13)
[2017-07-21] MEDS: QUEtiapine FUMARATE 100 MG TABLET PO SCH (08:14)
[2017-07-21] MEDS: OLANZapine 5 MG TABLET PO SCH (08:14)
[2017-07-21] MEDS: POLYETHYLENE GLYCOL 3350 119 GM BTL PO SCH (08:20)
[2017-07-21] MEDS: LORATADINE 10 MG TABLET PO SCH (08:21)
--- NOTE | 2017-07-22 05:43 | PN ---
Subjective - Date and Time Seen Date: 07/22/17 Subjective Narrative: Pt examined this am. No acute events overnight. She is in a pleasant mood. Objective - Vitals Vitals: Last Vital Signs Temp 36.4 C L 07/22/17 02:20 Pulse 75 07/22/17 02:20 Resp 20 07/22/17 02:20 BP 87/52 07/22/17 02:20 Pulse Ox 90 07/22/17 02:20 - Exam Constitutional: Present: Alert, No distress ENT Exam: Present: normal ENT inspection Neck: Present: non-tender, full range of motion Breasts: Present: Exam deferred Respiratory: Present: lungs clear Cardiovascular/Chest: Present: normal peripheral pulses, regular rate, rhythm, no chest tenderness Abdomen: Present: Normal bowel sounds, soft, nontender /Rectal: Present: Exam deferred Extremity: Present: normal range of motion Skin Exam: Present: warm/dry, no cyanosis Lymphatic: Present: no adenopathy Neurologic: Present: no motor/sensory deficits, alert Appearance: Present: impaired insight Eye contact: Present: cooperative, compulsive Thoughts: Present: no apparent hallucination Assessment/Plan - Problems/Diagnosis (1) Pneumonia Problem: Acute Qualifiers: Pneumonia type: due to unspecified organism Laterality: bilateral Lung location: unspecified part of lung Qualified Code(s): J18.9 - Pneumonia, unspecified organism Narrative: Pt completed 10 day course of IV antibiotics. (2) Discharge planning issues Problem: Acute Narrative: [facility]waiting [facility]. (3) GERD (gastroesophageal reflux disease) Problem: Acute (4) Mental retardation Problem: Chronic (5) Seizure Problem: Chronic
[2017-07-22] MEDS: ENOXAPARIN SODIUM 40 MG/0.4 ML SYRG SC SCH (06:18)
[2017-07-22] MEDS: PANTOPRAZOLE SODIUM 40 MG TABLET.EC PO SCH (06:18)
[2017-07-22] MEDS: TOLTERODINE TARTRATE 4 MG CAPSULE PO SCH (09:07)
[2017-07-22] MEDS: hydrOXYzine HCL 25 MG TABLET PO SCH ×3 (09:07→16:22)
[2017-07-22] MEDS: DOCUSATE SODIUM 100 MG CAPSULE PO SCH (09:07)
[2017-07-22] MEDS: LORATADINE 10 MG TABLET PO SCH (09:07)
[2017-07-22] MEDS: SACCHAROMYCES BOULARDII 250 MG CAPSULE PO SCH ×2 (09:08→20:09)
[2017-07-22] MEDS: POLYETHYLENE GLYCOL 3350 119 GM BTL PO SCH (09:08)
[2017-07-22] MEDS: levETIRAcetam 500 MG TABLET PO SCH ×2 (09:08→20:09)
[2017-07-22] MEDS: OLANZapine 5 MG TABLET PO SCH (09:09)
[2017-07-22] MEDS: CHLORHEXIDINE GLUCONATE 480 ML BTL MM SCH ×2 (09:09→20:11)
[2017-07-22] MEDS: MEMANTINE HCL 10 MG TABLET PO SCH ×2 (09:09→20:11)
[2017-07-22] MEDS: FLUoxetine HCL 20 MG CAPSULE PO SCH (09:09)
[2017-07-22] MEDS: QUEtiapine FUMARATE 100 MG TABLET PO SCH (09:09)
[2017-07-22] MEDS: clonazePAM 1 MG TABLET PO SCH ×2 (09:13→20:10)
[2017-07-22] MEDS: SENNOSIDES/DOCUSATE SODIUM 1 TAB TABLET PO SCH ×2 (17:12→20:15)
[2017-07-22] MEDS: traZODone HCL 150 MG TABLET PO SCH (20:09)
[2017-07-22] MEDS: lamoTRIgine 100 MG TABLET PO SCH (20:10)
[2017-07-22] MEDS: PREVIDENT DT SCH (20:13)
[2017-07-23] MEDS: ENOXAPARIN SODIUM 40 MG/0.4 ML SYRG SC SCH (06:25)
[2017-07-23] MEDS: PANTOPRAZOLE SODIUM 40 MG TABLET.EC PO SCH (06:25)
--- NOTE | 2017-07-23 07:57 | PN ---
Progess Note - Interim Narrative: 07/23/17 07:57 Possible discharge today.
[2017-07-23 08:12] VITALS: BP 118/79
[2017-07-23 08:19] LABS: Hematocrit 43.3 % (37.0-47.0); Mean Cell Volume 89.6 fl (78-100); Mean Corpuscular Hgb Conc 32.3 g/dl (32-36); Mean Platelet Volume 8.9 fl (6.0-9.5); Neutrophil # 4.2 K/mm3 (1.3-6.0); Neutrophil % 62.7 % (42-75.0); Platelet Count 675 K/mm3 (150-450); Red Blood Count 4.83 M/mm3 (4.2-5.4); Red Cell Distribution Width 14.1 % (11.5-14.0); White Blood Count 6.7 K/mm3 (4.0-10.5)
[2017-07-23 08:29] LABS: Anion Gap 11.9 mmol/L (6.8-13.8); BUN/Creatinine Ratio 21.5 (9.0-21.6); Carbon Dioxide 30.5 mmol/L (24-32.6); Estimated Creat Clear 60.3; Potassium 4.4 mmol/L (3.4-4.6)
[2017-07-23] MEDS: SACCHAROMYCES BOULARDII 250 MG CAPSULE PO SCH (09:10)
[2017-07-23] MEDS: hydrOXYzine HCL 25 MG TABLET PO SCH (09:10)
[2017-07-23] MEDS: POLYETHYLENE GLYCOL 3350 119 GM BTL PO SCH (09:10)
[2017-07-23] MEDS: levETIRAcetam 500 MG TABLET PO SCH (09:10)
[2017-07-23] MEDS: LORATADINE 10 MG TABLET PO SCH (09:10)
[2017-07-23] MEDS: TOLTERODINE TARTRATE 4 MG CAPSULE PO SCH (09:10)
[2017-07-23] MEDS: MEMANTINE HCL 10 MG TABLET PO SCH (09:11)
[2017-07-23] MEDS: FLUoxetine HCL 20 MG CAPSULE PO SCH (09:11)
[2017-07-23] MEDS: CHLORHEXIDINE GLUCONATE 480 ML BTL MM SCH (09:11)
[2017-07-23] MEDS: OLANZapine 5 MG TABLET PO SCH (09:11)
[2017-07-23] MEDS: QUEtiapine FUMARATE 100 MG TABLET PO SCH (09:11)
[2017-07-23] MEDS: clonazePAM 1 MG TABLET PO SCH (09:14)
--- NOTE | 2017-07-23 09:27 | DS ---
(1) Pneumonia Diagnosis(s): clinically resolved Problem: Acute Qualifiers: Pneumonia type: due to unspecified organism Laterality: bilateral Lung location: unspecified part of lung Qualified Code(s): J18.9 - Pneumonia, unspecified organism (2) Mental retardation Problem: Chronic (3) Seizure Problem: Chronic (4) GERD (gastroesophageal reflux disease) Problem: Acute (5) Thrombocytosis Diagnosis(s): likely reactive. repeat in 4 weeks. Problem: Acute Description of Stay: Nisa Nguyen a 52 year old female patient, who resides in a senior living with a PMH of MR, bipolar disorder and seizure disorder who was admitted on 07/11 for a 7+ day history of cough, fever, fatigue and dyspnea. Patient previously had seen dr. lindo on 07/09/17 who diagnosed her with pneumonia and started her on Levaquin 500 mg po daily. ER evaluation showed temp 37.6, hr 78, bp 91/42, sats 96% on RA. wbc normal at 5.8 with 77.3 neutrophils. ESR significantly elevated at 97. patient has chronically elevated liver enzymes. ER labs showed AST 113 and ALT 164, which is near patient's normal. UA positive for 15 protein and 1 bili. flu and strep negative. Chest xray showed worsening mid-lower lung pneumonia bilateral with Right worse than left. Given her MR history, there is a concern that her pneumonia may be aspiration in nature. Patient is to be admitted for pneumonia, failure of outpatient treatment for IV antibiotics. She was changed to Clindamycin. Speech evaluation was done and she did not exhibit any aspiration but showed sever reflux. They recommended mechanical soft diet and nectar thickened liquids. She was referred for PT/OT and they recommended more strengthening exercises before going back to her sheltered home. Her follow up labs showed thrombocytosis likely reactive. Will do a follow CXR in 4 weeks and a repeat CBC in 4 weeks. She is stable to be discharged today. She finished 10 day course of Antibiotics. Procedures Performed: none Discharge Disposition: Other HealthCare facility - [facility] Disposition: [facility] Condition: Stable Discharge Activity: Activity as tolerated Discharge Diet: Other - mechaninical soft diet/nectar thickened liquids. [facility] Care[facility] Therapy: Physicial Therapy, Occupation Therapy Referrals: Tamia Lindo MD [Primary Care Provider] - Additional Patient Instructions (free text): -Please make TCM appointment unless detention discharge. Thank you! Rowan @ [phone]. Repeat CBC in 4 weeks. Follow up with PCP in 4 weeks or establish with a new one in [place], [place]. Prescriptions (Any new or edited meds): Albuterol Sulfate/Ipratropium [Duoneb 2.5-0.5MG/3ML Soln] 3 ml IH QID #150 vial Clindamycin HCl [Cleocin] 300 mg PO BID 10 Days #20 capsule Pantoprazole Sodium [Protonix] 40 mg PO DAILY@0700 30 Days #30 tablet. Complete Home Medications List: Complete Home Medication List: Acetaminophen [Tylenol] 2 tab PO Q4HWA PRN 05/26/12 Clonazepam [Klonopin] 1 mg PO BID 05/26/12 Docusate Sodium [Colace] 100 mg PO BID 05/26/12 Olanzapine [Zyprexa] 7.5 mg PO DAILY 05/26/12 Polyethylene Glycol 3350 [Miralax] 17 gm PO BID 05/26/12 QUEtiapine FUMARATE [Seroquel Xr] 200 mg PO DAILY 05/26/12 Trazodone HCl 150 mg PO HS 05/26/12 Bisacodyl [Women's Laxative] 5 mg PO DAILY PRN 07/29/16 Cholecalciferol (Vitamin D3) [Vitamin D3] 2,000 unit PO DAILY 07/29/16 FLUoxetine HCL [Prozac] 40 mg PO DAILY 07/29/16 Fexofenadine HCl [Sejal Allergy] 180 mg PO DAILY 07/29/16 Fluticasone Propionate [Flonase Allergy Relief] 1 spray NS HS 07/29/16 LORazepam [Ativan] 1 mg PO DAILY PRN 07/29/16 Levocarnitine [Carnitor] 330 mg PO TID 07/29/16 levETIRAcetam [Keppra] 1,000 mg PO BID 07/29/16 Hydroxyzine HCl 25 mg PO TID 04/28/17 Solifenacin Succinate [Vesicare] 10 mg PO DAILY 04/28/17 Chlorhexidine Gluconate [Peridex 0.12%] 15 ml MM BID 07/12/17 Dextran 70/Hypromellose [Natural Balance Tears Eye Drop] 1 drop OP PRN PRN 07/12 Guaifen/Phenyleph/Acetaminophn [Tylenol Cold Head Congest Cplt] 2 each PO Q4H PRN 07/12/17 Hydrocortisone [Procto-Med Hc] 1 appl TP BID PRN 07/12/17 Memantine HCl 5 mg PO BID 07/12/17 Sodium Fluoride [Prevident] 100 ml DT HS 07/12/17 guaiFENesin [Mucinex] 1 tab PO BID PRN 07/12/17 guaiFENesin/DEXTROMETHORPHAN [Sm Tussin Dm Liquid] 10 ml PO Q4H PRN 07/12/17 lamoTRIgine [Lamictal] 200 mg PO HS 07/12/17 Albuterol Sulfate/Ipratropium [Duoneb 2.5-0.5MG/3ML Soln] 3 ml IH QID #150 vial 07/16/17 Clindamycin HCl [Cleocin] 300 mg PO BID 10 Days #20 capsule 07/16/17 Pantoprazole Sodium [Protonix] 40 mg PO DAILY@0700 30 Days #30 tablet. Amb Orders for Discharge: CBC Time Frame: 4 Weeks, Location: Determined By Patient
== END 2017-07-23 11:00 | DRG 194 ==
LOC: ER 14:28 → MS 17:11 → OBSVTOIN 07-12 11:23
PROVIDERS: ADMIT Internal Medicine; ATTEND Internal Medicine
DX: J18.9 Pneumonia, unspecified organism (principal); F31.89 Other bipolar disorder; E86.0 Dehydration; D47.3 Essential (hemorrhagic) thrombocythemia; R74.8 Abnormal levels of other serum enzymes; F79 Unspecified intellectual disabilities; G40.909 Epilepsy, unspecified, not intractable, without status epilepticus; K21.9 Gastro-esophageal reflux disease without esophagitis
CPT/HCPCS: 36415; 71045; 71046; 74230; 80048; 80053; 80076; 81001; 83605; 84145; 85007; 85025; 85652; 86140; 87040; 87081; 87086; 87400; 87430; 92526; 92610; 92611; 96361; 96365; 99285; G0378